=== PATIENT | female | born 1990 | race Caucasian/White ===

== ENCOUNTER 2016-10-20 09:07 | Day surgery (SDC) | payer OTHER ==
[2016-10-18 11:08] VITALS: BMI 30.9
[~2016-10-20 09:07] MED LIST: LACTATED RINGERS 1,000 ML IV SCH
[2016-10-20 09:19] VITALS: RESP 16; TEMP 98
--- NOTE | 2016-10-20 10:21 | P.PCN ---
Date of Procedure: 10/20/16 Procedure(s) Performed: PREOPERATIVE DIAGNOSIS: 1-lumbar radiculopathy 2-sacroiliitis. POSTOPERATIVE DIAGNOSIS: Same as preoperative diagnosis PROCEDURE 1. Lumbar epidural steroid injection under fluoroscopic guidance at the L5-S1 level. 2. Lumbar epidurogram. ANESTHESIA: Local with 1% lidocaine 3 ml only,no IV sedation given(Because the patient,s had difficult IV access ) EBL: Minimal PROCEDURE INDICATION: The patient with low back pain and radiculitis symptoms unresponsive to conservative treatment. Fluoroscopy was used to optimize visualization of the needle placement and to maximize safety. PROCEDURE DESCRIPTION / TECHNIQUE: The patient was seen and identified in the preoperative area. Risks, benefits , complications including but not limited to infections ,bleeding ,allergic reaction to the medications ,nerve damage and not complete pain releife , and alternatives were discussed with the patient. The patient agreed to proceed with the procedure and signed the consent, and vital signs were stable. Patient was taken to the OR and time out was completed. The patient was placed in the prone position on procedure table and a pillow was placed under the abdomen to reduce lumbar lordosis. The lumbosacral area was prepped and draped in the usual sterile fashion.ere closely monitored during the procedure. Vital signs was monitered during the entire procedure. Using anterior-posterior fluoroscopy, the L5-S1 interlaminar space was identified and the skin over this site was marked and then infiltrated with 1% lidocaine subcutaneously. Subsequently, a 20-gauge Tuohy epidural needle was inserted and advanced toward the epidural space using the ``Loss of resistance technique and guided by AP and lateral fluoroscopy. The correct needle position in the epidural space was verified with the injection of 2 mL of the water soluble contrast dye Omnipaque 180 contrast and observing an excellent epidurogram with the epidural spread of the dye, after negative aspiration for blood and CSF and in the absence of paresthesias. Again after negative aspiration, a 6 ml mixture containing 80 mg of Kenalog and 2 ml of preservative free Normal Saline, and 2 ml of preservative free lidocaine 1% solution was injected and a washout of epidurogram was seen. Needle was withdrawn intact, skin was cleansed, and bandages were applied. COMPLICATIONS: None DISPOSITION / PLANS: The patient was placed in a supine position and transferred to the recovery area in a stable condition for observation. There was no evidence of lower extremity motor or sensory deficit after the procedure. Patient was discharged from the recovery room after meeting discharge criteria. Home discharge instructions were given to the patient by the staff. The patient was reexamined prior to discharge. The patient will schedule a follow up in the clinic in 2-4 weeks.
--- NOTE | 2016-10-20 10:35 | FL ---
Fluoroscopy INDICATION: Pain FINDINGS: Fluoroscopy time: 4 seconds. Images obtained: 1. IMPRESSIONS: 1. Documentation of fluoroscopy.
[2016-10-20 10:39] VITALS: BP 107/69; PULSE 78
== END 2016-10-20 10:46 | disposition home or self-care (01) ==
LOC: ORPAIN 09:07
PROVIDERS: ATTEND Specialist
DX: M54.16 Radiculopathy, lumbar region (principal); M46.1 Sacroiliitis, not elsewhere classified
CPT/HCPCS: 62323; 81025

== ENCOUNTER 2016-10-29 02:50 | Observation (INO) | payer OTHER ==
[2016-10-29] MEDS ORDERED: HYDROmorphone 1 MG/ML 1 ML SYRINGE IVP STA (03:16)
[2016-10-29] MEDS ORDERED: ONDANSETRON 4 MG/2 ML VIAL IVP STA (03:16)
[2016-10-29] MEDS ORDERED: SODIUM CHLORIDE 0.9% 1,000 ML IV STA (03:16)
[2016-10-29 03:46] LABS: Basophils # (A) 0.1 k/uL (0-0.2); Basophils % (A) 0 %; CH 31.5; CHCM 33.6; Eosinophils # (A) 0.3 k/uL (0-0.7); Eosinophils % (A) 2 %; HCT 54.9 % (34.0-46.0); HDW 2.39; HGB 18.6 gm/dL (11.4-16.0); Luc # (Auto) 0.07; Luc % (Auto) 1; Lymphocytes # (A) 0.7 k/uL (1.0-4.8); Lymphocytes % (A) 5 %; MCH 31.8 pg (25.0-35.0); MCHC 33.9 g/dL (31.0-37.0); Mean Platelet Volume 7.2; Monocytes # (A) 0.4 k/uL (0-1.0); Monocytes % (A) 3 %; Neutrophils # (A) 12.9 k/uL (1.3-7.7); Neutrophils % (A) 90 %; RBC 5.84 m/uL (3.80-5.40); RDW 13.6 % (11.5-15.5); WBC 14.4 k/uL (3.8-10.6); WBC (Perox) 14.41
--- NOTE | 2016-10-29 03:50 | ED ---
Nausea/Vomiting/Diarrhea HPI - General Source: patient, RN notes reviewed Mode of arrival: ambulatory Limitations: no limitations <Kiki Carter - Last Filed: 10/29/16 04:19> <Real Becker - Last Filed: 10/29/16 05:09> - General Chief complaint: Nausea/Vomiting/Diarrhea Stated complaint: NVD, abd pain Time Seen by Provider: 10/29/16 03:09 - History of Present Illness Initial comments: Patient is a 25-year-old female with chief complaint of vomiting since 10:30 last night. She also reports she's had a few episodes of diarrhea. No specific fever or chills. She reports that she has not been able to hold down any food. She also reports that she has diffuse abdominal pain however it is worse and stabbing in the umbilical region. She has past medical history of heart surgery, lung biopsies and chronic back pain. Patient reports that she was recently diagnosed with pneumonia proximally 2 weeks ago and completed antibiotics. She denies any cough fever or chills since then. She states that she recently had a epidural and her lumbar spine a few days ago for chronic back pain. Patient reports that the procedure went well and had no complications after that. Patient states that she does have sick contacts with similar symptoms.Patient denies any recent fever, chills, shortness of breath, chest pain, back pain,numbness or tingling, dysuria or hematuria, headaches or visual changes, or any other current symptoms (Kiki Carter) - Related Data Home Medications Medication Instructions Recorded Confirmed Albuterol Inhaler [Ventolin Hfa 1 - 2 puff INHALATION Q6HR PRN 06/06/16 10/29/16 Inhaler] Baclofen [Lioresal] 10 mg PO DAILY 06/06/16 10/29/16 Gabapentin [Neurontin] 300 mg PO QID 06/06/16 10/29/16 Ipratropium-Albuterol Nebulize 3 ml INHALATION QID PRN 06/06/16 10/29/16 [Duoneb 0.5 mg-3 mg/3 ml Soln] Allergies Allergy/AdvReac Type Severity Reaction Status Date / Time No Known Allergies Allergy Verified 10/29/16 02:56 Review of Systems ROS Other: All systems not noted in ROS Statement are negative. <Kiki Carter - Last Filed: 10/29/16 04:19> ROS Other: All systems not noted in ROS Statement are negative. <BeckerReal - Last Filed: 10/29/16 05:09> ROS Statement: Those systems with pertinent positive or pertinent negative responses have been documented in the HPI. Past Medical History Past Medical History: Asthma, Musculoskeletal Disorder Additional Past Medical History / Comment(s): migraines. chronic back pain, heart murmur, coarctation of the aorta (surgery 1988), kidney stones, stillborn about 3 years ago, hx of being placed on life support 07/26 for 6 1/2 days pt states r/t asthma, pneumonia, current back pain with von leg pain History of Any Multi-Drug Resistant Organisms: None Reported Past Surgical History: Hernia Repair, Tubal Ligation Additional Past Surgical History / Comment(s): cardiac surgery Coarctation of aorta (1988), lung biopsy(1988), Umbilical hernia (12/31/14 ),hernia repair ,C-Sec WITH TWINS (10/23/14) Past Anesthesia/Blood Transfusion Reactions: No Reported Reaction Additional Past Anesthesia/Blood Transfusion Reaction / Comment(s): Never had blood transfusion Past Psychological History: Anxiety, Depression Additional Psychological History / Comment(s): currently not taking any medication, depression began when patient had a stillborn . Smoking Status: Current every day smoker Past Alcohol Use History: None Reported Additional Past Alcohol Use History / Comment(s): smoker since age 16 SMOKES 1PPD Past Drug Use History: None Reported - Past Family History Mother Family Medical History: Cancer, Diabetes Mellitus, Hyperlipidemia, Hypertension Additional Family Medical History / Comment(s): Thyroid CA Father Family Medical History: Asthma, Diabetes Mellitus <Kiki Carter - Last Filed: 10/29/16 04:19> General Exam Limitations: no limitations General appearance: alert, in no apparent distress Head exam: Present: atraumatic, normocephalic, normal inspection Eye exam: Present: normal appearance, PERRL, EOMI. Absent: scleral icterus, conjunctival injection, periorbital swelling ENT exam: Present: normal exam, mucous membranes moist Neck exam: Present: normal inspection. Absent: tenderness, meningismus, lymphadenopathy Respiratory exam: Present: normal lung sounds bilaterally. Absent: respiratory distress, wheezes, rales, rhonchi, stridor Cardiovascular Exam: Present: regular rate, normal rhythm, normal heart sounds. Absent: systolic murmur, diastolic murmur, rubs, gallop, clicks GI/Abdominal exam: Present: soft, tenderness (Patient has significant epigastric tenderness.), normal bowel sounds. Absent: distended, guarding, rebound, rigid Extremities exam: Present: normal inspection, full ROM, normal capillary refill. Absent: tenderness, pedal edema, joint swelling, calf tenderness Back exam: Present: normal inspection Neurological exam: Present: alert, oriented X3, CN II-XII intact Psychiatric exam: Present: normal affect, normal mood Skin exam: Present: warm, dry, intact, normal color. Absent: rash <Kiki Carter - Last Filed: 10/29/16 04:19> <Real Becker - Last Filed: 10/29/16 05:09> - General Exam Comments Initial Comments: is an ill-appearing 26-year-old female. No acute distress. (Kiki Carter) Course <Kiki Carter - Last Filed: 10/29/16 04:19> <Real Becker - Last Filed: 10/29/16 05:09> Vital Signs 10/29/16 02:55 Temperature 97.4 F L Pulse Rate 87 Respiratory 20 Rate Blood Pressure 134/71 O2 Sat by Pulse 98 Oximetry - Reevaluation(s) Reevaluation #1: 10/29/16 04:02 At this time patient was reevaluated. Patient reports that her abdominal pain is starting to subside however she is now complaining of the chest are chest pain. EKG was obtained and cardiac enzymes will also be obtained at this time. (Kiki Carter) Reevaluation #2: 10/29/16 04:19 Care was transferred over to Dr. Becker at 4:20 Am (Kiki Carter) Medical Decision Making - Lab Data Result diagrams: 10/29/16 03:30 10/29/16 03:30 - Radiology Data Radiology results: report reviewed <Kiki Carter - Last Filed: 10/29/16 04:19> - Lab Data Result diagrams: 10/29/16 03:30 10/29/16 03:30 <Real Becker - Last Filed: 10/29/16 05:09> - Medical Decision Making Patient is a 18-year-old female with chief complaint of vomiting since 10:30 yesterday evening and a few episodes of diarrhea. Patient reports that she has significant epigastric and umbilical abdominal pain. Patient denies any recent fever or chills. She was recently diagnosed and treated for pneumonia denies any cough or congestion since then. Labs were obtained and patient was given IV Zofran and 0.5 of Dilaudid for pain. Patient saline bolus. Chest x-ray and KUB x-ray were obtained. (Kiki Carter) Patient reevaluated by myself, Dr. Becker. Patient states chest discomfort is near resolved and now abdominal discomfort is starting to worsen. EKG reviewed and does appear somewhat different from previous. Troponin report returned negative. Patient and family updated on results and plan. Case discussed in detail with Dr. Rodriguez, who will admit for Dr. Russell. (Real Becker) - Lab Data Lab Results 10/29/16 10/29/16 10/29/16 Range/Units 03:30 03:30 03:30 WBC 14.4 H (3.8-10.6) k/uL RBC 5.84 H (3.80-5.40) m/uL Hgb 18.6 H (11.4-16.0) gm/dL Hct 54.9 H (34.0-46.0) % MCV 94.0 (80.0-100.0) fL MCH 31.8 (25.0-35.0) pg MCHC 33.9 (31.0-37.0) g/dL RDW 13.6 (11.5-15.5) % Plt Count 269 (150-450) k/uL Neutrophils % 90 % Lymphocytes % 5 % Monocytes % 3 % Eosinophils % 2 % Basophils % 0 % Neutrophils # 12.9 H (1.3-7.7) k/uL Lymphocytes # 0.7 L (1.0-4.8) k/uL Monocytes # 0.4 (0-1.0) k/uL Eosinophils # 0.3 (0-0.7) k/uL Basophils # 0.1 (0-0.2) k/uL Sodium 142 (137-145) mmol/L Potassium 4.1 (3.5-5.1) mmol/L Chloride 107 (98-107) mmol/L Carbon Dioxide 17 L (22-30) mmol/L Anion Gap 18 mmol/L BUN 23 H (7-17) mg/dL Creatinine 0.70 (0.52-1.04) mg/dL Est GFR (MDRD) Af Amer >60 (>60 ml/min/1.73 sqM) Est GFR (MDRD) Non-Af >60 (>60 ml/min/1.73 sqM) Glucose 176 H (74-99) mg/dL Calcium 9.7 (8.4-10.2) mg/dL Magnesium (1.6-2.3) mg/dL Total Bilirubin 0.8 (0.2-1.3) mg/dL AST 30 (14-36) U/L ALT 51 (9-52) U/L Alkaline Phosphatase 79 (38-126) U/L Total Creatine Kinase (30-135) U/L CK-MB (CK-2) (0.0-2.4) ng/mL CK-MB (CK-2) Rel Index Troponin I (0.000-0.034) ng/mL Total Protein 8.1 (6.3-8.2) g/dL Albumin 4.7 (3.5-5.0) g/dL Amylase 44 (30-110) U/L Lipase 90 (23-300) U/L Urine Color Yellow Urine Appearance Cloudy H (Clear) Urine pH 5.5 (5.0-8.0) Ur Specific [place] 1.022 (1.001-1.035) Urine Protein 1+ H (Negative) Urine Glucose (UA) Negative (Negative) Urine Ketones Negative (Negative) Urine Blood Trace H (Negative) Urine Nitrate Negative (Negative) Urine Bilirubin Negative (Negative) Urine Urobilinogen 2.0 (<2.0) mg/dL Ur Leukocyte Esterase Negative (Negative) Urine RBC 1 (0-5) /hpf Urine WBC 1 (0-5) /hpf Ur Squamous Epith Cells 9 H (0-4) /hpf Urine Mucus Rare H (None) /hpf 10/29/16 10/29/16 Range/Units 03:30 03:30 WBC (3.8-10.6) k/uL RBC (3.80-5.40) m/uL Hgb (11.4-16.0) gm/dL Hct (34.0-46.0) % MCV (80.0-100.0) fL MCH (25.0-35.0) pg MCHC (31.0-37.0) g/dL RDW (11.5-15.5) % Plt Count (150-450) k/uL Neutrophils % % Lymphocytes % % Monocytes % % Eosinophils % % Basophils % % Neutrophils # (1.3-7.7) k/uL Lymphocytes # (1.0-4.8) k/uL Monocytes # (0-1.0) k/uL Eosinophils # (0-0.7) k/uL Basophils # (0-0.2) k/uL Sodium (137-145) mmol/L Potassium (3.5-5.1) mmol/L Chloride (98-107) mmol/L Carbon Dioxide (22-30) mmol/L Anion Gap mmol/L BUN (7-17) mg/dL Creatinine (0.52-1.04) mg/dL Est GFR (MDRD) Af Amer (>60 ml/min/1.73 sqM) Est GFR (MDRD) Non-Af (>60 ml/min/1.73 sqM) Glucose (74-99) mg/dL Calcium (8.4-10.2) mg/dL Magnesium 1.7 (1.6-2.3) mg/dL Total Bilirubin (0.2-1.3) mg/dL AST (14-36) U/L ALT (9-52) U/L Alkaline Phosphatase (38-126) U/L Total Creatine Kinase 55 (30-135) U/L CK-MB (CK-2) 1.8 (0.0-2.4) ng/mL CK-MB (CK-2) Rel Index 3.3 Troponin I <0.012 (0.000-0.034) ng/mL Total Protein (6.3-8.2) g/dL Albumin (3.5-5.0) g/dL Amylase (30-110) U/L Lipase (23-300) U/L Urine Color Urine Appearance (Clear) Urine pH (5.0-8.0) Ur Specific [place] (1.001-1.035) Urine Protein (Negative) Urine Glucose (UA) (Negative) Urine Ketones (Negative) Urine Blood (Negative) Urine Nitrate (Negative) Urine Bilirubin (Negative) Urine Urobilinogen (<2.0) mg/dL Ur Leukocyte Esterase (Negative) Urine RBC (0-5) /hpf Urine WBC (0-5) /hpf Ur Squamous Epith Cells (0-4) /hpf Urine Mucus (None) /hpf 10/29/16 04:03 EKG shows normal sinus rhythm. There is possible left atrial enlargement. There is a rightward axis. His evidence of incomplete right bundle kike block. There is evidence of a T-wave abnormality to consider anterolateral ischemia. Ventricular rate 2 bpm. NJ interval 156 ms. QRS duration 86 ms. QT /QTc is 390/455 ms. (Kiki Carter) Disposition <Kiki Carter - Last Filed: 10/29/16 04:19> <Real Becker - Last Filed: 10/29/16 05:09> Clinical Impression: Abdominal pain, Chest pain, Vomiting Disposition: ADMITTED IP TO THIS HOSP
[2016-10-29 03:51] LABS: Appearance,Urine Cloudy (Clear); Bilirubin,Urine Negative (Negative); Glucose,Urine (UA) Negative (Negative); Ketones,Urine Negative (Negative); Leukocyte Esterase,Urine Negative (Negative); Mucus,Urine Rare /hpf; Nitrite,Urine Negative (Negative); PH, Urine 5.5 (5.0-8.0); Particle Count 5147; Protein,Urine 1+ (Negative); RBC,Urine 1 /hpf (0-5); Specific Gravity,Urine 1.022 (1.001-1.035); Squamous Epithelial Cell,Urine 9 /hpf (0-4); UA Billing (MACRO vs. MICRO) MICRO; WBC,Urine 1 /hpf (0-5)
[2016-10-29 04:07] LABS: ALT 51 U/L (9-52); AST 30 U/L (14-36); Alkaline Phosphatase 79 U/L (38-126); Amylase 44 U/L (30-110); Anion Gap 18 mmol/L; Blood Urea Nitrogen 23 mg/dL (7-17); Calcium 9.7 mg/dL (8.4-10.2); Carbon Dioxide 17 mmol/L (22-30); Chloride 107 mmol/L (98-107); Glucose 176 mg/dL (74-99); Non-African American GFR(MDRD) >60 (>60 ml/min/1.73 sqM); Potassium 4.1 mmol/L (3.5-5.1); Sodium 142 mmol/L (137-145); Total Bilirubin 0.8 mg/dL (0.2-1.3); Total Protein 8.1 g/dL (6.3-8.2)
[2016-10-29 04:20] LABS: Creatine Kinase 55 U/L (30-135)
[2016-10-29 04:33] LABS: Creatine Kinase MB 1.8 ng/mL (0.0-2.4); Troponin I <0.012 ng/mL (0.000-0.034)
--- NOTE | 2016-10-29 04:40 | XR ---
EXAMINATION TYPE: XR chest 2V DATE OF EXAM: 10/29/2016 4:16 AM COMPARISON: 07/21/2015 HISTORY: Umbilical pain chest pain. TECHNIQUE: Frontal and lateral views of the chest are obtained. FINDINGS: Mild atelectasis is suggested in the right lung base. No focal pneumonia pneumothorax or pleural effu lucy is noted. Right upper lobe azygous fissure is suggested. Surgical clips are noted in the left up per chest. Heart is not enlarged. The osseous structures are intact. IMPRESSION: 1. Mild atelectasis in the right lung base. 2. No definite focal pneumonia.
--- NOTE | 2016-10-29 04:43 | XR ---
EXAMINATION TYPE: XR KUB DATE OF EXAM: 10/29/2016 4:16 AM CLINICAL HISTORY: Umbilical pain chest pain TECHNIQUE: Single supine KUB image of the abdomen is obtained. COMPARISON: None. FINDINGS: Mild gaseous distention of bowel loops is noted in the abdomen and pelvis with multiple air-fluid lev els with suggestion of mild ileus or enteritis changes. No significant bowel obstruction is noted. There is no visceromegaly, pneumoperitoneum, or abnormal calcification appreciated. The lung bases are clear and the osseous structures are intact. IMPRESSION: Mild ileus or enteritis changes. No significant bowel obstruction is noted.
[2016-10-29] MEDS ORDERED: ASPIRIN 81 MG CHEW PO STA (05:09)
[2016-10-29] MEDS ORDERED: NITROGLYCERIN SL TABS 0.4 MG TAB SUBLINGUAL PRN (05:09)
[2016-10-29] MEDS ORDERED: DICYCLOMINE 10 MG/ML 2 ML AMP IM STA (05:11)
[2016-10-29] MEDS ORDERED: PANTOPRAZOLE 40 MG/10 ML VIAL IVP STA (05:11)
[2016-10-29] MEDS ORDERED: RX INFO: IV CONTRAST WAS GIVEN 1 EACH MISC MISCELLANE PRN (05:11)
[2016-10-29] MEDS ORDERED: ONDANSETRON 4 MG/2 ML VIAL IVP PRN (05:12)
[2016-10-29] MEDS ORDERED: NITROGLYCERIN OINT 1 INCH/GM PACKET TOPICAL SCH (06:00)
[2016-10-29 06:14] LABS: INR 1.1 (<1.1); Prothrombin Time 10.9 sec (9.0-12.0)
[2016-10-29 06:16] LABS: Partial Thromboplastin Time 21.5 sec (22.0-30.0)
[2016-10-29] MEDS: SODIUM CHLORIDE 0.9% 1,000 ML IV SCH ×2 (08:19→21:39)
--- NOTE | 2016-10-29 08:42 | CONS ---
DATE OF CONSULTATION: A 26-year-old lady with a history of some congenital heart surgery when she was 3 weeks old, probably was a coarctation, but there is no verification. She smokes about a pack a day and has had hernia surgery performed for her umbilical hernia surgery sometime in 2014, in June. Prior to that, she had an umbilical hernia in December repaired as well. She comes in this time because she has been having nausea, unable to keep anything down, and emesis from about 10:30 p.m. last night. This morning, she feels better. Her sickness to the stomach seems to have improved. She also had some sharp pains in the chest when she was doing some retching. She is pain-free, comfortable at the time of my evaluation. She smokes 1 pack a day. At the time of my evaluation, she is asymptomatic. EKG revealed a sinus mechanism with an incomplete right bundle nonspecific ST-T changes. Her initial troponin is unremarkable. PAST MEDICAL HISTORY: 1. Question of previous coarctation and surgery when she was a few weeks old, details are unavailable. 2. Bronchial asthma. 3. Recurrent pneumonias in the past. 4. Status post abdominal hernia repair. Medications include albuterol inhaler, Neurontin. She also takes DuoNeb nebulizer. ALLERGIES: None. REVIEW OF SYSTEMS: Remarkable for shortness of breath and recurrent pneumonias. No hematemesis or melena, genitourinary symptoms, fevers with chills, or cough with expectoration. On examination, blood pressure is 118/70, pulse rate is 80 per minute, regular. HEENT: Unremarkable. Fundus was not examined by me. Neck is supple. There is JVD of 1 cm. No carotid bruit. Heart exam reveals S1, S2 with a systolic murmur at the base and left sternal border. Second heart sound is preserved. Left lower sternal border has a systolic murmur. Lungs are clear. Abdomen is distended, nontender. Lower extremities reveal diminished pulses. No edema. Central nervous system is normal. EKG revealed sinus mechanism, incomplete right bundle branch block pattern with nonspecific ST-T changes. IMPRESSION: 1. Atypical chest pain. 2. History of abdominal hernia repair. 3. Probable gastritis with abdominal pain, nausea and vomiting, which she seems to have improved. 4. Bronchial asthma. 5. History of tobacco abuse. RECOMMENDATIONS: I have reviewed that she had a CT angiography performed in July 2015. There is no significant abnormality other than pneumonia. I am suggesting that we decrease the aspirin to 81 mg daily, discontinue the nitro paste, give her Protonix 40 mg daily, increase activity, and then get another troponin and if this is normal, no further investigation from a cardiac standpoint is necessary. I am also recommending subcu heparin 5000 q.12 hours. No other investigation is necessary from a cardiac standpoint at this time. Thank you very much for the consult.
[2016-10-29] MEDS ORDERED: HEPARIN SODIUM,PORCINE 5,000 UNIT/ML 1 ML VIAL SQ SCH (09:00)
[2016-10-29 09:22] VITALS: BMI 33.5
[2016-10-29 09:45] LABS: Creatine Kinase 34 U/L (30-135)
[2016-10-29 09:59] LABS: Creatine Kinase MB 1.6 ng/mL (0.0-2.4); Troponin I <0.012 ng/mL (0.000-0.034)
[2016-10-29] MEDS ORDERED: ALBUTEROL NEBULIZED 2.5 MG/3 ML INHALATION PRN (11:01)
[2016-10-29] MEDS: ASPIRIN 81 MG CHEW PO SCH (11:14)
[2016-10-29] MEDS: HEPARIN SODIUM,PORCINE 5,000 UNIT/ML 1 ML VIAL SQ SCH ×2 (11:14→21:36)
[2016-10-29] MEDS: PANTOPRAZOLE 40 MG/10 ML VIAL IVP SCH (11:14)
[2016-10-29] MEDS: GABAPENTIN 300 MG CAP PO SCH ×3 (14:04→21:38)
[2016-10-29] MEDS: IPRATROPIUM-ALBUTEROL 3 ML NEB INHALATION PRN (15:35)
[2016-10-29 16:00] LABS: Creatine Kinase 38 U/L (30-135)
[2016-10-29 16:14] LABS: Creatine Kinase MB 1.6 ng/mL (0.0-2.4); Troponin I <0.012 ng/mL (0.000-0.034)
--- NOTE | 2016-10-29 18:44 | HP ---
CHIEF COMPLAINT: Intractable nausea, vomiting, abdominal pain. HISTORY OF PRESENT ILLNESS: Ms. Rubio is a 26-year-old female with known history of abdominal hernia repair in December 2014 and history of heart surgery for coarctation of aorta when she was 3 weeks old and neuropathy. She came to the hospital with complaints of nausea, vomiting and abdominal pain since last night. Patient also complained of sharp pains in the chest, but serial EKGs and troponins are negative. Currently being treated with the Zofran and Protonix. Nausea, vomiting seems to be improved; otherwise, is still having abdominal pain, mainly in the upper abdomen and epigastric region. Patient also had a bowel movement. No gross blood noted. FOBT was positive otherwise. Patient does smoke 1/2 pack to 1 pack per day. Denied any unusual food intake. Patient was recently treated with antibiotics for pneumonia and she completed antibiotic course about 2 weeks ago. No complaints of cough or sputum production at this time. No sick contacts at home. REVIEW OF SYSTEMS: CONSTITUTIONAL: No fever. No chills. No weakness, malaise. RESPIRATORY: No cough or sputum production. CARDIOVASCULAR: Patient does have chest pressure and no short of breath. No leg swelling. ABDOMEN: Patient does have nausea. No vomiting now. Patient does have abdominal pain and diarrhea. GENITOURINARY: Negative. ENDOCRINE: Negative. PSYCHIATRIC: Negative. SKIN: Negative. All other 14-point review of systems negative except as above. Past medical history includes: 1. Bronchial asthma. 2. Recent pneumonia. 3. Abdominal hernia repair in 2014. 4. History of coarctation of aorta when she was 3 weeks old, status post repair. 5. Migraine headaches. 6. Chronic back pain. 7. Renal stones. 8. Heart murmur. 9. History of intubation. PAST SURGICAL HISTORY: Cardiac surgery for coarctation of aorta when she was 3 weeks old, hernia repair, tubal ligation, lung biopsy. PSYCHOSOCIAL HISTORY: Anxiety and depression, not on any medication at this time. SOCIAL HISTORY: Current every day smoker, smoker since age 16, 1/2 pack to 1 pack per day. No alcohol use. Denied any drugs or IVDU. FAMILY HISTORY: Mother has cancer, diabetes mellitus, hyperlipidemia, hypertension and thyroid cancer. Father had asthma and diabetes mellitus. ALLERGIES: No known drug allergies. Home medications include: 1. Albuterol inhaler. 2. Baclofen. 3. Gabapentin. 4. DuoNeb. PHYSICAL EXAMINATION: A 26-year-old male lying in bed comfortably; awake, alert, oriented x3, appears to be in no apparent distress. VITALS: Blood pressure is 101/57, pulse is 66, respirations 16, temperature afebrile, pulse ox 97% on room air. HEENT: Atraumatic, normocephalic. Neck is supple. No JVD. CVS: S1, S2 heard. Patient does have systolic murmur. No gallop. LUNGS: Bilateral air entry is present. No wheezing. No crackles. ABDOMEN: Soft. Upper abdominal tenderness in the epigastric region above the umbilicus. No guarding. No rigidity. Bowel sounds are present. No palpable organomegaly. MATERIALS TECH: Awake, alert, oriented x3. No focal deficit. EXTREMITIES: No edema. Pulses palpable bilaterally. No clubbing or cyanosis. PSYCHIATRIC: Cooperative. LABORATORY DATA: WBC 14.4, hemoglobin 18.6, platelets are 269, INR 1.1. Sodium 142, potassium 4.1, chloride 107, bicarb is 17, BUN 23, creatinine 0.7. Blood sugar is 176. Serial troponins x3 negative. UA showed cloudy urine with negative leukocyte esterase and nitrate negative. ( ) possible contaminant sample. FOBT positive. C. diff. negative. IMPRESSION: 1. Intractable nausea, vomiting, abdominal pain. 2. Atypical chest pain, ruled out acute coronary syndrome. 3. Acute gastroenteritis. 4. History of abdominal hernia repair in 2014. 5. Bronchial asthma, stable. 6. Nicotine addiction. 7. Recent pneumonia, status post antibiotic course completed 2 weeks ago. 8. Deep venous thrombosis prophylaxis. 9. History of migraine headaches. 10. Chronic back pain. 11. Neuropathy, nondiabetic. 12. Patient's KUB x-ray showed mild ileus or ( ) ileus. No significant bowel obstruction is noted. DISCUSSION AND PLAN: Patient will be continued on IV Protonix and Zofran p.r.n. and continue the IV fluids, continue with IV management. Once the nausea and vomiting improves, then ready to be started on clear liquids and advance as tolerated. Will continue the home medications and continue the IV fluids. Cardiology has seen the patient and recommended no further workup at this time, ruled out acute coronary syndrome. Further recommendations based on the clinical course.
[2016-10-29] MEDS ORDERED: LOPERAMIDE 2 MG CAP PO PRN (21:13)
[2016-10-29] MEDS: BACLOFEN 10 MG TAB PO SCH (21:38)
[2016-10-29] MEDS: HYDROmorphone 1 MG/ML 1 ML SYRINGE IVP PRN (21:42)
[2016-10-30] MEDS: SODIUM CHLORIDE 0.9% 1,000 ML IV SCH ×3 (04:00→21:34)
[2016-10-30] MEDS: HYDROmorphone 1 MG/ML 1 ML SYRINGE IVP PRN ×3 (06:43→21:27)
[2016-10-30] MEDS: HEPARIN SODIUM,PORCINE 5,000 UNIT/ML 1 ML VIAL SQ SCH ×2 (07:34→21:27)
[2016-10-30] MEDS: ASPIRIN 81 MG CHEW PO SCH (07:34)
[2016-10-30] MEDS: GABAPENTIN 300 MG CAP PO SCH ×3 (07:34→21:27)
[2016-10-30] MEDS: PANTOPRAZOLE 40 MG/10 ML VIAL IVP SCH (07:34)
[2016-10-30 07:40] LABS: Basophils % (A) 1 %; CH 31.3; CHCM 33.2; Eosinophils # (A) 0.1 k/uL (0-0.7); Eosinophils % (A) 3 %; HCT 42.2 % (34.0-46.0); HDW 2.35; Luc # (Auto) 0.12; Luc % (Auto) 2; Lymphocytes # (A) 1.2 k/uL (1.0-4.8); Lymphocytes % (A) 22 %; MCH 31.2 pg (25.0-35.0); MCHC 32.9 g/dL (31.0-37.0); MCV 94.8 fL (80.0-100.0); Mean Platelet Volume 8.1; Monocytes # (A) 0.4 k/uL (0-1.0); Monocytes % (A) 7 %; Neutrophils # (A) 3.5 k/uL (1.3-7.7); Neutrophils % (A) 66 %; RBC 4.45 m/uL (3.80-5.40); RDW 13.8 % (11.5-15.5); WBC 5.3 k/uL (3.8-10.6); WBC (Perox) 5.36
[2016-10-30 07:45] LABS: HGB 13.9 gm/dL (11.4-16.0)
[2016-10-30 07:50] LABS: Anion Gap 9 mmol/L; Blood Urea Nitrogen 14 mg/dL (7-17); Calcium 8.2 mg/dL (8.4-10.2); Carbon Dioxide 21 mmol/L (22-30); Chloride 110 mmol/L (98-107); Cholesterol 134 mg/dL (<200); Glucose 80 mg/dL (74-99); HDL Cholesterol 39 mg/dL (40-60); Non-African American GFR(MDRD) >60 (>60 ml/min/1.73 sqM); Potassium 4.4 mmol/L (3.5-5.1); Sodium 140 mmol/L (137-145); Triglycerides 131 mg/dL (<150)
[2016-10-30] MEDS ORDERED: ACETAMINOPHEN TAB 325 MG TAB PO PRN (08:35)
[2016-10-30] MEDS ORDERED: PANTOPRAZOLE 40 MG/10 ML VIAL IVP SCH (09:00)
[2016-10-30] MEDS ORDERED: ASPIRIN 325 MG TAB PO SCH (09:00)
[2016-10-30] MEDS ORDERED: ASPIRIN 81 MG CHEW PO SCH (09:00)
[2016-10-30 14:15] LABS: Amylase <30 U/L (30-110)
[2016-10-30] MEDS ORDERED: RX INFO: IV CONTRAST WAS GIVEN 1 EACH MISC MISCELLANE PRN (15:27)
[2016-10-30] MEDS: IOHEXOL 350 MG/ML 25 ML BOTTLE (ORAL USE) PO PRN ×2 (15:51→16:46)
--- NOTE | 2016-10-30 18:15 | CT ---
EXAMINATION TYPE: CT abdomen pelvis w con DATE OF EXAM: 10/30/2016 5:47 PM HISTORY: Umbilical pain with nausea, vomiting and diarrhea. CT DLP: 1018.90mGycm Automated Exposure Control for Dose Reduction was Utilized. CONTRAST: CT scan of the abdomen and pelvis is performed with IV Contrast, patient injected with 100 mL of Omni paque 300. COMPARISON: None. FINDINGS: LUNG BASES: No significant abnormality is appreciated. LIVER/GB: No significant abnormality is appreciated. PANCREAS: No significant abnormality is seen. SPLEEN: No significant abnormality is seen. ADRENALS: No significant abnormality is seen. KIDNEYS: No significant abnormality is seen. BOWEL: The oral contrast does not reach level of terminal ileum making evaluation slightly suboptimal . No suspicious small or large bowel dilatation is seen. Appendix likely within normal limits from po sterior inferior margin of cecum. UTERUS/ADNEXA: Uterus is retroverted in shape, heterogeneous appearance, and within normal limits in size. Right ovary is not well seen. Left ovary is more prominent with oval low dense 4.2 x 3.2 cm str ucture on coronal image 37 could reflect simple small ovarian cyst. This could be better characterize d with pelvic ultrasound if desired. Few scattered pelvic phleboliths are seen. Cannot exclude trace free fluid along right posterior aspect of uterus. LYMPH NODES: No greater than 1cm abdominal or pelvic lymph nodes are appreciated. OSSEOUS STRUCTURES: No significant abnormality is seen. OTHER: Small fat-containing umbilical hernia is present. Some areas of ill-defined fat stranding in the anterior abdominal wall are identified, for reference right side just below umbilicus on axial image 52 and left abdomen axial image 57, this could reflect product of subcutaneous medicine injection, scarring from prior surgery, or soft tissue infection/ce llulitis, clinical correlation advised. IMPRESSION: 1. No bowel obstruction is seen. No significant finding is identified to account for patient's sympto ms. 2. A 4.2 x 3.2 cm low dense oval shaped left ovarian/adnexal mass, probable simple ovarian cyst, cons ider pelvic ultrasound confirmation. 3. Attention to anterior abdominal wall as detailed above.
[2016-10-30 20:48] VITALS: RESP 16
[2016-10-30] MEDS: BACLOFEN 10 MG TAB PO SCH (21:27)
[2016-10-31] MEDS: ASPIRIN 81 MG CHEW PO SCH (08:12)
[2016-10-31] MEDS: PANTOPRAZOLE 40 MG/10 ML VIAL IVP SCH (08:13)
[2016-10-31] MEDS: HYDROmorphone 1 MG/ML 1 ML SYRINGE IVP PRN (08:13)
[2016-10-31] MEDS: HEPARIN SODIUM,PORCINE 5,000 UNIT/ML 1 ML VIAL SQ SCH (08:13)
[2016-10-31] MEDS: GABAPENTIN 300 MG CAP PO SCH (08:13)
[2016-10-31] MEDS: SODIUM CHLORIDE 0.9% 1,000 ML IV SCH (08:29)
[2016-10-31] MEDS: IPRATROPIUM-ALBUTEROL 3 ML NEB INHALATION PRN (09:49)
--- NOTE | 2016-10-31 11:42 | PN ---
DATE OF SERVICE: 10/30/2016 INTERVAL HISTORY: Ms. Rubio is a 26 -year-old female with a known history of abdominal hernia repair and history of heart surgery for coaptation of aorta when she was [age] weeks old and neuropathy nondiabetic, came to the hospital with complaints of nausea, vomiting, abdominal pain which have been improved at this time, diarrhea has improved as well. The patient is being managed symptomatically. Otherwise, the patient is still complaining of abdominal pain, mainly in the epigastric abdomen and also upper abdominal area. There is tenderness to palpation. No guarding or rigidity. Patient will be getting CT of the abdomen and pelvis for further evaluation. Otherwise, patient did tolerate her lunch today. Denied any diarrhea. No fever. No chills. Patient is very anxious and requesting IV pain medications. Otherwise, no cough or sputum production. No dysuria, hematuria. All other fourteen-point review of systems negative except as above. CURRENT MEDICATIONS: Reviewed and include: 1. Tylenol. 2. DuoNeb. 3. Aspirin. 4. Baclofen. 5. Neurontin. 6. Heparin subcu. 7. Dilaudid. 8. Omnipaque for oral contrast. 9. Imodium. 10. Nitrostat. 11. Zofran. 12. Protonix. 13. normal saline at 100 mL per hour. PHYSICAL EXAMINATION: A 26-year-old male lying in bed comfortably, awake, alert, oriented, x3. Appears to be in no apparent distress. VITALS: Blood pressure is 111/68, pulse is 63, respirations 18, temperature afebrile, pulse ox 99% on room air. HEENT: Atraumatic, normocephalic. Neck is supple. No JVD. CVS: S1, S2 heard. No murmurs, no gallop, no rub. LUNGS: Bilateral air entry is present. ABDOMEN: Soft. Epigastric tenderness moderate. No guarding or rigidity. Bowel sounds are present. 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 No focal deficits. PSYCHIATRIC: Cooperative but anxious. EXTREMITIES: No edema. Pulses palpable bilaterally. No clubbing or cyanosis. PSYCHIATRIC: Cooperative. LABORATORY DATA: WBC 5.3, hemoglobin 13.9, platelets 191, INR 1.1. Sodium 140, potassium 4.4, chloride 110, bicarbonate 21, BUN 14, creatinine 0.66. Calcium 8.2, LDL is 69, amylase less than 30 and lipase is 80. IMPRESSION: 1. Intractable nausea, vomiting, abdominal pain with possible acute gastroenteritis. 2. Ileus, possible bowel obstruction, we will get CT of the abdomen and pelvis. 3. Acute atypical chest pain on admission and ruled out acute coronary syndrome. 4. History of abdominal hernia repair in December 2014. 5. Bronchial asthma, stable. 6. Nicotine addiction. 7. Recent pneumonia, status post antibiotic course completed two weeks ago. 8. Deep venous thrombosis prophylaxis. 9. History of migraine headaches. 10. Chronic back pain. 11. Neuropathy nondiabetic. DISCUSSION AND PLAN: The patient will be continued on IV fluids and IV Protonix and Zofran p.r.n. for nausea and vomiting. Patient tolerated the p.o. diet today. We will get lipase and amylase was within normal limits. We will get CT of the abdomen and pelvis to rule out obstruction or any other issues. Will continue the current management and continue the pain management. Further recommendations based on clinical course. Anticipate discharge in the next 24 hours if more clinical improvement.
[2016-10-31 12:23] VITALS: BP 100/63; PULSE 55; TEMP 98.7
--- NOTE | 2016-12-26 06:39 | DS ---
DATE OF ADMISSION: 10/29/2016 DATE OF DISCHARGE: 10/31/2016 DISCHARGE DIAGNOSES: 1. Intractable nausea, vomiting, abdominal pain, possible acute gastroenteritis. 2. Ileus, improved now. No evidence of bowel obstruction in the CT of the abdomen and pelvis. 3. Left adnexal mass, possible simple ovarian cyst as per CT abdomen. 4. Atypical chest pain on admission, ruled out acute coronary syndrome. 5. History of abdominal hernia repair in December 2014. 6. Bronchial asthma, stable. 7. Nicotine addiction. 8. Recent pneumonia, status post antibiotic course completed 2 weeks ago. 9. Deep venous thrombosis prophylaxis. 10. History of migraine headaches. 11. Chronic back pain. 12. Neuropathy nondiabetic. HOSPITAL COURSE: Ms. Rubio is a 26-year-old female with known history of abdominal hernia repair in 2014 and heart surgery for coarctation of aorta when she was 3 weeks old and neuropathy and multiple other medical problems admitted to the hospital with nausea, vomiting, abdominal pain and diarrhea. Patient was receiving antibiotics for pneumonia. Her C. difficile toxin is negative. Otherwise patient was treated symptomatically for nausea and vomiting. Patient did improve symptomatically. Patient had a CT of abdomen and pelvis showed no obstruction. Patient was found to have a left adnexal mass/simple ovarian cyst for which patient was recommended to follow up as an outpatient with [facility]. Otherwise patient's abdominal pain and nausea and vomiting, improved now, tolerating p.o. diet. Patient will be discharged home and followed with the primary care physician and as well as [facility] in the clinic for further management. Currently, patient is symptom free. DISCHARGE PHYSICAL EXAMINATION: A 26-year-old female, lying in bed comfortably, awake, alert, oriented x3. He appears to be in no apparent distress. VITALS: Blood pressure is 100/63, pulse is 55, respiratory rate 16, temperature afebrile, pulse ox is saturating at 100% on room air. LABORATORY DATA: Reviewed. Bicarb is 21, BUN 14, creatinine 0.66. Lipase and amylase not elevated. C. difficile toxin is negative. Discharge physical examination done. Discharge medications include: 1. Albuterol inhaler 2 puffs q.i.d. p.r.n. for short of breath. 2. Baclofen 10 mg p.o. at bedtime. 3. DuoNeb 3 mL inhalation RT q.i.d. p.r.n. for short of breath. 4. Gabapentin 300 mg p.o. t.i.d. Patient will be discharged home in stable condition. Activity as tolerated. Heart healthy diet. Follow with Dr. Modi in the clinic. Home with self care.
== END 2016-10-31 13:30 | disposition home or self-care (01) ==
LOC: EC 02:50 → 3OBS 05:09
PROVIDERS: ADMIT Internal Medicine; ATTEND Internal Medicine
DX: R19.7 Diarrhea, unspecified (principal); R07.89 Other chest pain; J45.909 Unspecified asthma, uncomplicated; F17.200 Nicotine dependence, unspecified, uncomplicated; G62.9 Polyneuropathy, unspecified; G89.29 Other chronic pain; M54.9 Dorsalgia, unspecified; K56.7 Ileus, unspecified; Z82.49 Family history of ischemic heart disease and other diseases of the circulatory system; Z87.01 Personal history of pneumonia (recurrent); Z87.442 Personal history of urinary calculi; Z79.899 Other long term (current) drug therapy
CPT/HCPCS: 96375 ×3; 96361 ×2; 96372 ×2; 96374 ×2; 99285 ×2; 36415; 94640 ×2; 93005; 80061; 80053; 80048; 82150 ×2; 82550; 82553; 83690 ×2; 83735; 84484; 85025 ×2; 85610; 85730; 82272; 81001; 80299; 71020; 74000; 74177; G0378 ×3; J0500; J1644 ×3; J2405; J1170 ×3; Q9967; C9113 ×3; 87324; 96376

== ENCOUNTER 2016-11-30 09:57 | Day surgery (SDC) | payer OTHER ==
[2016-11-29 09:04] VITALS: BMI 33.5
[2016-11-30 10:21] VITALS: RESP 16; TEMP 98
[2016-11-30] MEDS ORDERED: TRIAMCINOLONE ACETONIDE 40 MG/ML 1 ML VIAL ONE (11:03)
[2016-11-30] MEDS ORDERED: BUPIVACAINE (PF) 0.5% 30 ML VIAL ONE (11:03)
--- NOTE | 2016-11-30 11:23 | P.PCN ---
Date of Procedure: 11/30/16 Procedure(s) Performed: PREOPERATIVE DIAGNOSIS: 1- Lumbar radiculopathy 2-sacroiliitis POSTOPERATIVE DIAGNOSIS: Same as preoperative diagnoses PROCEDURE 1. Lumbar epidural steroid injection under fluoroscopic guidance at the L4-5 level. 2. Lumbar epidurogram. ANESTHESIA: Local with 1% lidocaine 3 ml only ( no IV sedation given, as per patient's request) EBL: Minimal PROCEDURE INDICATION: The patient with low back pain and radiculitis symptoms unresponsive to conservative treatment. Fluoroscopy was used to optimize visualization of the needle placement and to maximize safety. PROCEDURE DESCRIPTION / TECHNIQUE: The patient was seen and identified in the preoperative area. Risks, benefits , complications including but not limited to infections ,bleeding ,allergic reaction to the medications ,nerve damage and not complete pain releife , and alternatives were discussed with the patient. The patient agreed to proceed with the procedure and signed the consent and vital signs were stable. Patient was taken to the OR and time out was completed. The patient was placed in the prone position on procedure table and a pillow was placed under the abdomen to reduce lumbar lordosis. The lumbosacral area was prepped and draped in the usual sterile fashion.ere closely monitored during the procedure. Vital signs was monitered during the entire procedure. Using anterior-posterior fluoroscopy, the L4-5 interlaminar space was identified and the skin over this site was marked and then infiltrated with 1% lidocaine subcutaneously. Subsequently, a 20-gauge Tuohy epidural needle was inserted and advanced toward the epidural space using the ``Loss of resistance technique and guided by AP and lateral fluoroscopy. The correct needle position in the epidural space was verified with the injection of 2 mL of the water soluble contrast dye Omnipaque 180 contrast and observing an excellent epidurogram with the epidural spread of the dye, after negative aspiration for blood and CSF and in the absence of paresthesias. Again after negative aspiration, a 6 ml mixture containing 80 mg of Kenalog and 2 ml of preservative free Normal Saline, and 2 ml of preservative free lidocaine 1% solution was injected and a washout of epidurogram was seen. Needle was withdrawn intact, skin was cleansed, and bandages were applied. COMPLICATIONS: None DISPOSITION / PLANS: The patient was placed in a supine position and transferred to the recovery area in a stable condition for observation. There was no evidence of lower extremity motor or sensory deficit after the procedure. Patient was discharged from the recovery room after meeting discharge criteria. Home discharge instructions were given to the patient by the staff. The patient was reexamined prior to discharge. The patient will schedule a follow up in the clinic in 2-4 weeks.
[2016-11-30 11:30] VITALS: BP 98/63; PULSE 88
--- NOTE | 2016-11-30 11:32 | FL ---
EXAMINATION TYPE: FL guided pain mgmt statistic DATE OF EXAM: 11/30/2016 11:24 AM CLINICAL HISTORY: Low back pain. TECHNIQUE: Fluoroscopy. COMPARISON: None. FINDINGS: Fluoroscopic guidance was provided during pain relief procedure performed by Dr. Turner . A total of 3 seconds of fluoroscopic time was utilized during the procedure and 1 spot image is ac quired. Single image acquired shows needle localization at level of L5 vertebra. IMPRESSION: As Above.
== END 2016-11-30 11:46 | disposition home or self-care (01) ==
LOC: ORPAIN 09:57
PROVIDERS: ATTEND Specialist
DX: M51.16 Intervertebral disc disorders with radiculopathy, lumbar region (principal); M46.1 Sacroiliitis, not elsewhere classified
CPT/HCPCS: 81025; 62323; J3301

== ENCOUNTER → 2016-12-12 | Outpatient (CLI) | payer OTHER ==
--- NOTE | 2016-12-12 14:58 | US ---
EXAMINATION TYPE: US pelvis complete transvag DATE OF EXAM: 12/12/2016 1:57 PM COMPARISON: NONE CLINICAL HISTORY: L Ovarian Cyst N83.20. follow up from CT in October 2016; patient states has irreg ular menses since September/vaginal bleeding now per patient; (twins)A1; C section delivery x 1 TECHNIQUE: Transvaginal (TV) and Transabdominal (TA) Date of LMP: last normal one in September 2016 EXAM MEASUREMENTS: Uterus: 9.3 x 6.2 x 4.0cm Endometrial Stripe: 1.2 cm by transvaginal Right Ovary: 2.5 x 2.1 x 1.5cm Left Ovary: 2.7 x 1.8 x 1.8 cm 1. Uterus: Anteverted Multiple Nabothian cysts with largest = 0.6 x 0.5 x 0.4cm 2. Endometrium: unable to correlate thickness with irregular menses 3. Right Ovary: multifollicular with largest = 1.2 x 1.3 x 1.6cm 4. Left Ovary: multiple small follicles 5. Bilateral Adnexa: wnl 6. Posterior cul-de-sac: wnl The uterus is anteverted. There are multiple nabothian cysts within the cervix. Endometrial stripe is normal in thickness. There are follicular changes in both ovaries. No free fluid is seen. IMPRESSION: NABOTHIAN CYSTS.
== END ==
LOC: RADUSWWP 13:04
PROVIDERS: ATTEND Obstetrics & Gynecology
DX: N88.8 Other specified noninflammatory disorders of cervix uteri (principal)
CPT/HCPCS: 76830; 76856

== ENCOUNTER → 2017-01-02 | Outpatient (CLI) | payer OTHER ==
[2017-01-02 12:46] VITALS: BP 155/82; PULSE 76; RESP 18; TEMP 98.5
--- NOTE | 2017-01-02 13:26 | P.PN ---
Progress Note - Text This is a 26-year-old female with lower back pain with radiation to the lower extremities bilaterally occasionally to the toes. Her lower back pain is more intense than her legs pain as she states. She failed to respond to 3 lumbar epidural steroid injections. She does have tenderness in the lumbar paravertebral area bilaterally. She has a history of aortic coarctation with surgery on the aorta when she was 3 weeks old and she was told that it is better to avoid having IVs in her left arm. Since the patient's pain is more intense in her lower back and we'll schedule her to have lumbar bilateral medial branch block as diagnostic procedure and if she gets significant relief of her pain then we can plan on doing the radio frequency ablation in the future. I will restart the patient on Neurontin and baclofen. She used to get them from Dr. Snowden who stopped prescribing for her. The above-mentioned procedure was explained to the patient and her questions were answered. [place] he had the lumbar epidural under local anesthesia but for this procedure she would like to try IV sedation with an IV to be started on the right arm as possible.
== END ==
LOC: PNWHC3 12:04
PROVIDERS: ATTEND Anesthesiology
DX: M54.5 Low back pain (principal)
CPT/HCPCS: 99211

== ENCOUNTER 2017-04-11 23:11 | Emergency (ER) | payer OTHER ==
[2017-04-11 23:21] VITALS: RESP 18
[2017-04-12] MEDS ORDERED: RX INFO: IV CONTRAST WAS GIVEN 1 EACH MISC MISCELLANE PRN (01:09)
--- NOTE | 2017-04-12 02:36 | CT ---
INDICATION: Pain, evaluate for mastoiditis TECHNIQUE: CT acquisition is performed through the facial bones following the administration of 100 mL Omnipaque 300 IV contrast. Sagittal and coronal reformatted images provided. DOSE INFORMATION: CTDIvol 30.60 mGy; DLP 361.20 mGy-cm. One or more of the following dose reduction techniques were used: automated exposure control, adjustment of the mA and/or kV according to patient size, use of iterative reconstruction technique. COMPARISON: None. FINDINGS: There is no evidence of acute fracture of the facial bones. The nasal bones, orbits, zygomatic arches, pterygoid plates, and mandible are intact. Temporomandibular joints are congruent bilaterally. The visualized paranasal sinuses and mastoid air cells and middle ear cavities are clear. IMPRESSION: 1. No evidence of mastoiditis.
[2017-04-12] MEDS ORDERED: HYDROcodone/APAP 5-325MG 1 EACH TAB PO STA (02:42)
[2017-04-12] MEDS ORDERED: IBUPROFEN 600 MG TAB PO STA (02:42)
--- NOTE | 2017-04-12 02:44 | ED ---
ENT HPI - General Chief complaint: ENT Stated complaint: ear pain Time Seen by Provider: 04/11/17 23:25 Source: patient Mode of arrival: ambulatory Limitations: no limitations - Related Data Home Medications Medication Instructions Recorded Confirmed Albuterol Inhaler [Ventolin Hfa 2 puff INHALATION RT-QID PRN 06/06/16 04/11/17 Inhaler] Amoxicillin 500 mg PO Q12HR 04/11/17 04/11/17 Previous Rx's Medication Instructions Recorded Ciprofloxacin HCl [Cipro] 500 mg PO Q12HR #14 tablet 04/12/17 Ciprofloxacin-Dexameth [Ciprodex 4 drops LEFT EAR BID #15 ml 04/12/17 Otic Susp] Ibuprofen [Motrin] 600 mg PO Q8HR PRN #20 tab 04/12/17 traMADol HCl [Ultram] 50 mg PO Q6H PRN #15 tab 04/12/17 Allergies Allergy/AdvReac Type Severity Reaction Status Date / Time No Known Allergies Allergy Verified 04/11/17 23:27 Review of Systems ROS Statement: Those systems with pertinent positive or pertinent negative responses have been documented in the HPI. ROS Other: All systems not noted in ROS Statement are negative. Past Medical History Past Medical History: Asthma, Musculoskeletal Disorder Additional Past Medical History / Comment(s): migraines,hx. heart murmur, coarctation of the aorta (surgery 1988), kidney stones, hx of being placed on life support 07/26 for 6 1/2 days pt states r/t asthma, pneumonia, current back pain with von leg pain, recent admission for abd pain-ovarian cysts History of Any Multi-Drug Resistant Organisms: None Reported Past Surgical History: Section, Hernia Repair, Tubal Ligation Additional Past Surgical History / Comment(s): cardiac surgery Coarctation of aorta (1988), lung biopsy(1988), Umbilical hernia (12/31/14 ),hernia repair ,C-Sec WITH TWINS (10/23/14) Past Anesthesia/Blood Transfusion Reactions: No Reported Reaction Additional Past Anesthesia/Blood Transfusion Reaction / Comment(s): Never had blood transfusion Past Psychological History: Anxiety, Depression Smoking Status: Current every day smoker Past Alcohol Use History: None Reported Past Drug Use History: None Reported - Past Family History Mother Family Medical History: Cancer, Diabetes Mellitus, Hyperlipidemia, Hypertension Additional Family Medical History / Comment(s): Thyroid CA Father Family Medical History: Asthma General Exam Limitations: no limitations Course Vital Signs 04/11/17 23:19 Temperature 97.0 F L Pulse Rate 82 Respiratory 18 Rate Blood Pressure 145/86 O2 Sat by Pulse 100 Oximetry Disposition Clinical Impression: Otitis externa Disposition: HOME SELF-CARE Condition: Good Instructions: Earache (ED) Prescriptions: Ciprofloxacin HCl [Cipro] 500 mg PO Q12HR #14 tablet Ciprofloxacin-Dexameth [Ciprodex Otic Susp] 4 drops LEFT EAR BID #15 ml Ibuprofen [Motrin] 600 mg PO Q8HR PRN #20 tab PRN Reason: Pain traMADol HCl [Ultram] 50 mg PO Q6H PRN #15 tab PRN Reason: Pain Referrals: Cornelia Modi MD [Primary Care Provider] - 1-2 days Kirk Vines MD [STAFF PHYSICIAN] - 1-2 days
[2017-04-12] MEDS ORDERED: CIPROFLOXACIN-DEXAMETH 0.3-0.1% DROPS 7.5 ML BTL LEFT EAR STA (03:15)
[2017-04-12 03:26] VITALS: BP 131/77; PULSE 66; TEMP 98.7
== END 2017-04-12 03:26 | disposition home or self-care (01) ==
LOC: EC 23:11
DX: H60.90 Unspecified otitis externa, unspecified ear (principal); F17.200 Nicotine dependence, unspecified, uncomplicated
CPT/HCPCS: 99283; 70487; Q9967

== ENCOUNTER 2017-08-02 10:18 | Emergency (ER) | payer OTHER ==
[2017-08-02] MEDS ORDERED: RX INFO: IV CONTRAST WAS GIVEN 1 EACH MISC MISCELLANE PRN (10:39)
[2017-08-02] MEDS ORDERED: HYDROmorphone 0.5 MG/0.5 ML SYRINGE IVP STA (10:39)
[2017-08-02] MEDS ORDERED: ONDANSETRON 4 MG/2 ML VIAL IVP STA (10:39)
[2017-08-02] MEDS ORDERED: SODIUM CHLORIDE 0.9% 1,000 ML IV STA (10:39)
[2017-08-02] MEDS ORDERED: PANTOPRAZOLE 40 MG/10 ML VIAL IVP STA (10:40)
--- NOTE | 2017-08-02 10:56 | ED ---
Abdominal Pain HPI - General Chief Complaint: Abdominal Pain Stated Complaint: Abd Pain Time Seen by Provider: 08/02/17 10:26 Source: patient, RN notes reviewed Mode of arrival: ambulatory Limitations: no limitations - History of Present Illness Initial Comments: 26-year-old female presents emergency Department chief complaint of epigastric abdominal pain. Patient states that the pain is in her epigastric minimal radiation to her back. Patient does admit to some nausea denies vomiting diarrhea constipation. Patient denies fever, chills, chest pain or shortness breath. Patient states she has had prior umbilical hernia surgery with Dr. Green. Patient's has had prior tubal ligation. Patient denies any dysuria hematuria. Patient states nothing seems to make the symptoms feel better or worse. Patient has taken Zantac as directed. - Related Data Home Medications Medication Instructions Recorded Confirmed Gabapentin [Neurontin] 300 mg PO TID 08/02/17 08/02/17 Previous Rx's Medication Instructions Recorded Hydrocodone/Acetaminophen [[place] 1 tab PO Q6HR PRN #15 tab 08/02/17 5-325] Omeprazole 40 mg PO DAILY #14 capsule. 08/02/17 Ondansetron Odt [Zofran Odt] 4 mg PO Q8HR PRN #10 tab 08/02/17 Allergies Allergy/AdvReac Type Severity Reaction Status Date / Time No Known Allergies Allergy Verified 08/02/17 10:33 Review of Systems ROS Statement: Those systems with pertinent positive or pertinent negative responses have been documented in the HPI. ROS Other: All systems not noted in ROS Statement are negative. Past Medical History Past Medical History: Asthma, Musculoskeletal Disorder Additional Past Medical History / Comment(s): migraines,hx. heart murmur, coarctation of the aorta (surgery 1988), kidney stones, hx of being placed on life support 07/26 for 6 1/2 days pt states r/t asthma, pneumonia, current back pain with von leg pain, recent admission for abd pain-ovarian cysts History of Any Multi-Drug Resistant Organisms: None Reported Past Surgical History: Section, Hernia Repair, Tubal Ligation Additional Past Surgical History / Comment(s): cardiac surgery Coarctation of aorta (1988), lung biopsy(1988), Umbilical hernia (12/31/14 ),hernia repair ,C-Sec WITH TWINS (10/23/14) Past Anesthesia/Blood Transfusion Reactions: No Reported Reaction Additional Past Anesthesia/Blood Transfusion Reaction / Comment(s): Never had blood transfusion Past Psychological History: Anxiety, Depression Smoking Status: Current every day smoker Past Alcohol Use History: None Reported Past Drug Use History: None Reported - Past Family History Mother Family Medical History: Cancer, Diabetes Mellitus, Hyperlipidemia, Hypertension Additional Family Medical History / Comment(s): Thyroid CA Father Family Medical History: Asthma General Exam Limitations: no limitations General appearance: alert, in no apparent distress Head exam: Present: atraumatic, normocephalic, normal inspection Eye exam: Present: normal appearance, PERRL, EOMI. Absent: scleral icterus, conjunctival injection, periorbital swelling ENT exam: Present: normal exam, normal oropharynx, mucous membranes moist, TM's normal bilaterally, normal external ear exam Neck exam: Present: normal inspection, full ROM. Absent: tenderness, meningismus, lymphadenopathy Respiratory exam: Present: normal lung sounds bilaterally. Absent: respiratory distress, wheezes, rales, rhonchi, stridor Cardiovascular Exam: Present: regular rate, normal rhythm, normal heart sounds. Absent: systolic murmur, diastolic murmur, rubs, gallop, clicks GI/Abdominal exam: Present: soft, tenderness (Moderate epigastric tenderness), normal bowel sounds. Absent: distended, guarding, rebound, rigid Back exam: Absent: CVA tenderness (R), CVA tenderness (L) Skin exam: Present: warm, dry, intact, normal color. Absent: rash Course Vital Signs 08/02/17 10:20 Temperature 98.2 F Pulse Rate 96 Respiratory 18 Rate Blood Pressure 171/108 O2 Sat by Pulse 100 Oximetry Medical Decision Making - Medical Decision Making This a 26-year-old female presents emergency Department chief complaint epigastric pain. Patient's CT does show evidence of anterior abdominal wall hernia though on the more periumbilical region. Patient's laboratory unremarkable. Patient has some underlying peptic ulcer disease. Patient will be switched to omeprazole 40 mg, given pain medication at this time advised for close follow-up. - Lab Data Result diagrams: 08/02/17 10:55 08/02/17 10:55 Lab Results 08/02/17 08/02/17 08/02/17 Range/Units 10:55 10:55 10:55 WBC 6.8 (3.8-10.6) k/uL RBC 4.55 (3.80-5.40) m/uL Hgb 14.1 (11.4-16.0) gm/dL Hct 41.8 (34.0-46.0) % MCV 91.7 (80.0-100.0) fL MCH 31.0 (25.0-35.0) pg MCHC 33.8 (31.0-37.0) g/dL RDW 12.7 (11.5-15.5) % Plt Count 207 (150-450) k/uL Neutrophils % 69 % Lymphocytes % 22 % Monocytes % 4 % Eosinophils % 2 % Basophils % 1 % Neutrophils # 4.7 (1.3-7.7) k/uL Lymphocytes # 1.5 (1.0-4.8) k/uL Monocytes # 0.2 (0-1.0) k/uL Eosinophils # 0.2 (0-0.7) k/uL Basophils # 0.0 (0-0.2) k/uL Sodium 138 (137-145) mmol/L Potassium 4.6 (3.5-5.1) mmol/L Chloride 108 H (98-107) mmol/L Carbon Dioxide 21 L (22-30) mmol/L Anion Gap 9 mmol/L BUN 15 (7-17) mg/dL Creatinine 0.70 (0.52-1.04) mg/dL Est GFR (MDRD) Af Amer >60 (>60 ml/min/1.73 sqM) Est GFR (MDRD) Non-Af >60 (>60 ml/min/1.73 sqM) Glucose 94 (74-99) mg/dL Plasma Lactic Acid [place] (0.7-2.0) mmol/L Calcium 9.5 (8.4-10.2) mg/dL Total Bilirubin 0.5 (0.2-1.3) mg/dL AST 21 (14-36) U/L ALT 31 (9-52) U/L Alkaline Phosphatase 55 (38-126) U/L Troponin I <0.012 (0.000-0.034) ng/mL Total Protein 7.1 (6.3-8.2) g/dL Albumin 4.2 (3.5-5.0) g/dL Amylase 45 (30-110) U/L Lipase 83 (23-300) U/L Urine Color Urine Appearance (Clear) Urine pH (5.0-8.0) Ur Specific [place] (1.001-1.035) Urine Protein (Negative) Urine Glucose (UA) (Negative) Urine Ketones (Negative) Urine Blood (Negative) Urine Nitrite (Negative) Urine Bilirubin (Negative) Urine Urobilinogen (<2.0) mg/dL Ur Leukocyte Esterase (Negative) 08/02/17 08/02/17 Range/Units 10:55 10:55 WBC (3.8-10.6) k/uL RBC (3.80-5.40) m/uL Hgb (11.4-16.0) gm/dL Hct (34.0-46.0) % MCV (80.0-100.0) fL MCH (25.0-35.0) pg MCHC (31.0-37.0) g/dL RDW (11.5-15.5) % Plt Count (150-450) k/uL Neutrophils % % Lymphocytes % % Monocytes % % Eosinophils % % Basophils % % Neutrophils # (1.3-7.7) k/uL Lymphocytes # (1.0-4.8) k/uL Monocytes # (0-1.0) k/uL Eosinophils # (0-0.7) k/uL Basophils # (0-0.2) k/uL Sodium (137-145) mmol/L Potassium (3.5-5.1) mmol/L Chloride (98-107) mmol/L Carbon Dioxide (22-30) mmol/L Anion Gap mmol/L BUN (7-17) mg/dL Creatinine (0.52-1.04) mg/dL Est GFR (MDRD) Af Amer (>60 ml/min/1.73 sqM) Est GFR (MDRD) Non-Af (>60 ml/min/1.73 sqM) Glucose (74-99) mg/dL Plasma Lactic Acid [place] 1.0 (0.7-2.0) mmol/L Calcium (8.4-10.2) mg/dL Total Bilirubin (0.2-1.3) mg/dL AST (14-36) U/L ALT (9-52) U/L Alkaline Phosphatase (38-126) U/L Troponin I (0.000-0.034) ng/mL Total Protein (6.3-8.2) g/dL Albumin (3.5-5.0) g/dL Amylase (30-110) U/L Lipase (23-300) U/L Urine Color Light Yellow Urine Appearance Clear (Clear) Urine pH 6.5 (5.0-8.0) Ur Specific [place] 1.009 (1.001-1.035) Urine Protein Negative (Negative) Urine Glucose (UA) Negative (Negative) Urine Ketones Negative (Negative) Urine Blood Negative (Negative) Urine Nitrite Negative (Negative) Urine Bilirubin Negative (Negative) Urine Urobilinogen <2.0 (<2.0) mg/dL Ur Leukocyte Esterase Negative (Negative) Disposition Clinical Impression: Epigastric abdominal pain, Gastritis Disposition: HOME SELF-CARE Condition: Stable Instructions: Abdominal Pain (ED), Gastritis (ED) Additional Instructions: Please return to the Emergency Department if symptoms worsen or any other concerns. Prescriptions: Hydrocodone/Acetaminophen [[place] 5-325] 1 tab PO Q6HR PRN #15 tab PRN Reason: Pain Omeprazole 40 mg PO DAILY #14 capsule. Ondansetron Odt [Zofran Odt] 4 mg PO Q8HR PRN #10 tab PRN Reason: Nausea Referrals: Cornelia Modi MD [Primary Care Provider] - 1-2 days Swapna Pierce MD [STAFF PHYSICIAN] - 1-2 days
[2017-08-02 11:12] LABS: Basophils % (A) 1 %; CH 30.8; CHCM 33.7; Eosinophils # (A) 0.2 k/uL (0-0.7); Eosinophils % (A) 2 %; HCT 41.8 % (34.0-46.0); HDW 2.35; HGB 14.1 gm/dL (11.4-16.0); Luc # (Auto) 0.17; Luc % (Auto) 3; Lymphocytes # (A) 1.5 k/uL (1.0-4.8); Lymphocytes % (A) 22 %; MCHC 33.8 g/dL (31.0-37.0); MCV 91.7 fL (80.0-100.0); Mean Platelet Volume 7.2; Monocytes # (A) 0.2 k/uL (0-1.0); Monocytes % (A) 4 %; Neutrophils # (A) 4.7 k/uL (1.3-7.7); Neutrophils % (A) 69 %; RBC 4.55 m/uL (3.80-5.40); RDW 12.7 % (11.5-15.5); WBC 6.8 k/uL (3.8-10.6); WBC (Perox) 6.65
[2017-08-02 11:14] LABS: Appearance,Urine Clear (Clear); Bilirubin,Urine Negative (Negative); Glucose,Urine (UA) Negative (Negative); Ketones,Urine Negative (Negative); Leukocyte Esterase,Urine Negative (Negative); Nitrite,Urine Negative (Negative); PH, Urine 6.5 (5.0-8.0); Protein,Urine Negative (Negative); Specific Gravity,Urine 1.009 (1.001-1.035); UA Billing (MACRO vs. MICRO) CHEM; Urobilinogen,Urine <2.0 mg/dL (<2.0)
[2017-08-02 11:25] LABS: ALT 31 U/L (9-52); AST 21 U/L (14-36); Alkaline Phosphatase 55 U/L (38-126); Amylase 45 U/L (30-110); Anion Gap 9 mmol/L; Blood Urea Nitrogen 15 mg/dL (7-17); Calcium 9.5 mg/dL (8.4-10.2); Carbon Dioxide 21 mmol/L (22-30); Chloride 108 mmol/L (98-107); Glucose 94 mg/dL (74-99); Non-African American GFR(MDRD) >60 (>60 ml/min/1.73 sqM); Potassium 4.6 mmol/L (3.5-5.1); Sodium 138 mmol/L (137-145); Total Bilirubin 0.5 mg/dL (0.2-1.3); Total Protein 7.1 g/dL (6.3-8.2)
--- NOTE | 2017-08-02 12:06 | CT ---
EXAMINATION TYPE: CT abdomen pelvis w con DATE OF EXAM: 08/02/2017 COMPARISON: 10/30/2016 INDICATION: Epigastric Pain DLP: 627.5 mGycm, Automated exposure control for dose reduction was used. CONTRAST: 100 mL of Omnipaque 300. Study performed without Oral Contrast TECHNIQUE: Axial images were obtained from above the diaphragm to the pubic rami in the axial plane a t 5 mm thick sections. Reconstructed images are reviewed on the computer in the coronal plane. FINDINGS: Limited CT sections are obtained the lung bases. Minimal subsegmental compressive atelectasis in the dependent portions of the lung bases, left greater than right, may be present.. CT ABDOMEN: Liver: Normal Spleen: Normal Pancreas: Normal Adrenal glands: The adrenal glands are normal. Gallbladder: Normal Kidneys: No masses are evident. No hydronephrosis is present. No cysts are present. Delayed images were obtained through the kidneys, which remain unremarkable. Aorta: Normal Inferior vena cava: Normal. CT PELVIS: Loops of bowel within the abdomen and pelvis are normal. Study is without oral contrast limiting the evaluation. Fecal debris is noted within the colon. There is a broad anterior abdominal wall leopoldo ia in the periumbilical region containing loop of colon. No entrapment is evident. Appendix: Normal as visualized. Urinary bladder: Normal. Genitourinary structures: Uterus is unremarkable. Adnexal regions are clear. Osseous structures: No suspicious lytic or sclerotic lesions. IMPRESSIONS: 1. No suspicious acute changes. 2. Broad-based mild anterior abdominal wall hernia without evidence of obstruction.
[2017-08-02] MEDS ORDERED: MAG HYDROX/AL HYDROX/SIMETH 30 ML, HYOSCYAMINE ELIXIR 10 ML, CIMETIDINE HCL 300 MG PO STA ×3 (12:46)
[2017-08-02 13:36] VITALS: BP 132/80; PULSE 72; RESP 17; TEMP 97.9
== END 2017-08-02 13:34 | disposition home or self-care (01) ==
LOC: EC 10:18
DX: K29.70 Gastritis, unspecified, without bleeding (principal); K43.9 Ventral hernia without obstruction or gangrene; K42.9 Umbilical hernia without obstruction or gangrene; K27.9 Peptic ulcer, site unspecified, unspecified as acute or chronic, without hemorrhage or perforation; M54.9 Dorsalgia, unspecified; F41.9 Anxiety disorder, unspecified; F17.200 Nicotine dependence, unspecified, uncomplicated; Z79.899 Other long term (current) drug therapy
CPT/HCPCS: 36415; 93005; 80053; 82150; 83605; 83690; 84484; 85025; 81003; 74177; 99284; 96374; 96375 ×2; 96361 ×2; J2405; Q9967; C9113; J1170

== ENCOUNTER 2020-10-22 09:36 | Emergency (ER) | payer OTHER ==
[2020-10-22 09:41] VITALS: TEMP 97.8
[2020-10-22] MEDS ORDERED: KETOROLAC 15 MG/ML 1 ML VIAL IVP STA (09:58)
[2020-10-22] MEDS ORDERED: SODIUM CHLORIDE 0.9% 500 ML 500 ML IV STA (09:58)
[2020-10-22] MEDS ORDERED: HYDROmorphone 0.5 MG/0.5 ML SYRINGE IVP STA ×2 (09:58→10:51)
[2020-10-22] MEDS ORDERED: ONDANSETRON 4 MG/2 ML VIAL IVP STA (09:58)
[2020-10-22] MEDS ORDERED: SODIUM CHLORIDE 0.9% 1,000 ML IV STA (09:58)
[2020-10-22 10:18] LABS: Basophils # (A) 0.1 k/uL (0-0.2); Basophils % (A) 1 %; Eosinophils # (A) 0.3 k/uL (0-0.7); Eosinophils % (A) 3 %; HCT 40.8 % (34.0-46.0); HGB 13.9 gm/dL (11.4-16.0); Lymphocytes # (A) 2.2 k/uL (1.0-4.8); Lymphocytes % (A) 24 %; MCH 31.7 pg (25.0-35.0); MCV 93.2 fL (80.0-100.0); Mean Platelet Volume 7.1; Monocytes # (A) 0.4 k/uL (0-1.0); Monocytes % (A) 4 %; Neutrophils % (A) 67 %; Platelet Count 248 k/uL (150-450); RBC 4.38 m/uL (3.80-5.40)
[2020-10-22 10:21] LABS: Appearance,Urine Cloudy (Clear); Bacteria,Urine Rare /hpf; Bilirubin,Urine Negative (Negative); Blood,Urine Large (Negative); Color,Urine Yellow; Glucose,Urine (UA) Negative (Negative); Ketones,Urine Negative (Negative); Leukocyte Esterase,Urine Small (Negative); Mucus,Urine Rare /hpf; Nitrite,Urine Negative (Negative); PH, Urine 5.5 (5.0-8.0); Protein,Urine 1+ (Negative); RBC,Urine >182 /hpf (0-5); Specific Gravity,Urine 1.021 (1.001-1.035); Squamous Epithelial Cell,Urine 4 /hpf (0-4); Urobilinogen,Urine <2.0 mg/dL (<2.0); WBC,Urine 8 /hpf (0-5)
[2020-10-22 10:36] LABS: African American GFR (CKD) >90 (>60 ml/min/1.73 sqM); Albumin 4.3 g/dL (3.5-5.0); Amylase 54 U/L (30-110); Blood Urea Nitrogen 16 mg/dL (7-17); Calcium 9.3 mg/dL (8.4-10.2); Carbon Dioxide 21 mmol/L (22-30); Glucose 100 mg/dL (74-99); Non-African American GFR(CKD) >90 (>60 ml/min/1.73 sqM); Total Bilirubin 0.5 mg/dL (0.2-1.3); Total Protein 7.4 g/dL (6.3-8.2)
[2020-10-22 10:37] LABS: ALT 20 U/L (4-34); Anion Gap 10 mmol/L; Chloride 106 mmol/L (98-107); Lipase 155 U/L (23-300); Sodium 137 mmol/L (137-145)
--- NOTE | 2020-10-22 10:37 | ED ---
General Adult HPI - General Chief complaint: Back Pain/Injury Stated complaint: Back/abd pain poss kidney stone Time Seen by Provider: 10/22/20 09:43 Source: patient, RN notes reviewed Mode of arrival: ambulatory Limitations: no limitations - History of Present Illness Initial comments: This a 29-year-old female presents emergency Department chief complaint of severe right flank pain. Patient states this started suddenly onset of pain. Nothing makes it feel better or worse at this time. Patient does have a history kidney stones but states it's been several years and just passes stone. She has not noticed any hematuria no dysuria no fevers or chills patient admits nausea, near vomiting. Patient denies any chest pain. Patient took some medications earlier but states that did not help. Patient offers no complaints. - Related Data Home Medications Medication Instructions Recorded Confirmed Albuterol Sulfate [Proair Hfa] 2 puff INHALATION RT-Q6H PRN 10/22/20 10/22/20 Previous Rx's Medication Instructions Recorded Ketorolac [Toradol] 10 mg PO Q8HR #15 tab 10/22/20 Ondansetron Odt [Zofran Odt] 4 mg PO Q8HR PRN #10 tab 10/22/20 Tamsulosin [Flomax] 0.4 mg PO DAILY #7 cap 10/22/20 Allergies Allergy/AdvReac Type Severity Reaction Status Date / Time No Known Allergies Allergy Verified 10/22/20 11:09 Review of Systems ROS Statement: Those systems with pertinent positive or pertinent negative responses have been documented in the HPI. ROS Other: All systems not noted in ROS Statement are negative. Past Medical History Past Medical History: Asthma, Musculoskeletal Disorder Additional Past Medical History / Comment(s): migraines,hx. heart murmur, coarctation of the aorta (surgery 1988), kidney stones, hx of being placed on life support 07/26 for 6 1/2 days pt states r/t asthma, pneumonia, current back pain with von leg pain, recent admission for abd pain-ovarian cysts History of Any Multi-Drug Resistant Organisms: None Reported Past Surgical History: Section, Hernia Repair, Tubal Ligation Additional Past Surgical History / Comment(s): cardiac surgery Coarctation of aorta (1988), lung biopsy(1988), Umbilical hernia (12/31/14 ),hernia repair 06/25,C-Sec WITH TWINS (10/23/14) Past Anesthesia/Blood Transfusion Reactions: No Reported Reaction Additional Past Anesthesia/Blood Transfusion Reaction / Comment(s): Never had blood transfusion Past Psychological History: Anxiety, Depression Smoking Status: Current every day smoker Past Alcohol Use History: None Reported Past Drug Use History: None Reported - Past Family History Mother Family Medical History: Cancer, Diabetes Mellitus, Hyperlipidemia, Hypertension Additional Family Medical History / Comment(s): Thyroid CA Father Family Medical History: Asthma General Exam Limitations: no limitations General appearance: alert, in no apparent distress Head exam: Present: atraumatic, normocephalic, normal inspection Eye exam: Present: normal appearance, PERRL, EOMI. Absent: scleral icterus, conjunctival injection, periorbital swelling ENT exam: Present: normal exam, normal oropharynx, mucous membranes moist Neck exam: Present: normal inspection, full ROM. Absent: tenderness, meningismus, lymphadenopathy Respiratory exam: Present: normal lung sounds bilaterally. Absent: respiratory distress, wheezes, rales, rhonchi, stridor Cardiovascular Exam: Present: regular rate, normal rhythm, normal heart sounds. Absent: systolic murmur, diastolic murmur, rubs, gallop, clicks GI/Abdominal exam: Present: soft, normal bowel sounds. Absent: distended, tenderness, guarding, rebound, rigid Back exam: Present: CVA tenderness (R). Absent: CVA tenderness (L) Neurological exam: Present: alert, oriented X3 Skin exam: Present: warm, dry, intact, normal color. Absent: rash Course Vital Signs 10/22/20 09:37 Temperature 97.8 F Pulse Rate 101 H Respiratory 20 Rate Blood Pressure 156/80 O2 Sat by Pulse 99 Oximetry Medical Decision Making - Medical Decision Making 29-year-old presented for flank pain. Patient has hematuria noticed and urinalysis. Patient is improved after pain meds and fluids. Patient does have history kidney stone symptoms are consistent with kidney stone. Patient discharged in stable condition return parameters were discussed. - Lab Data Result diagrams: 10/22/20 10:08 10/22/20 10:08 Lab Results 10/22/20 10/22/20 10/22/20 Range/Units 10:06 10:06 10:08 WBC 9.0 (3.8-10.6) k/uL RBC 4.38 (3.80-5.40) m/uL Hgb 13.9 (11.4-16.0) gm/dL Hct 40.8 (34.0-46.0) % MCV 93.2 (80.0-100.0) fL MCH 31.7 (25.0-35.0) pg MCHC 34.0 (31.0-37.0) g/dL RDW 12.0 (11.5-15.5) % Plt Count 248 (150-450) k/uL MPV 7.1 Neutrophils % 67 % Lymphocytes % 24 % Monocytes % 4 % Eosinophils % 3 % Basophils % 1 % Neutrophils # 6.0 (1.3-7.7) k/uL Lymphocytes # 2.2 (1.0-4.8) k/uL Monocytes # 0.4 (0-1.0) k/uL Eosinophils # 0.3 (0-0.7) k/uL Basophils # 0.1 (0-0.2) k/uL Sodium (137-145) mmol/L Potassium (3.5-5.1) mmol/L Chloride (98-107) mmol/L Carbon Dioxide (22-30) mmol/L Anion Gap mmol/L BUN (7-17) mg/dL Creatinine (0.52-1.04) mg/dL Est GFR (CKD-EPI)AfAm (>60 ml/min/1.73 sqM) Est GFR (CKD-EPI)NonAf (>60 ml/min/1.73 sqM) Glucose (74-99) mg/dL Calcium (8.4-10.2) mg/dL Total Bilirubin (0.2-1.3) mg/dL AST (14-36) U/L ALT (4-34) U/L Alkaline Phosphatase (38-126) U/L Total Protein (6.3-8.2) g/dL Albumin (3.5-5.0) g/dL Amylase (30-110) U/L Lipase (23-300) U/L Urine Color Yellow Urine Appearance Cloudy H (Clear) Urine pH 5.5 (5.0-8.0) Ur Specific [place] 1.021 (1.001-1.035) Urine Protein 1+ H (Negative) Urine Glucose (UA) Negative (Negative) Urine Ketones Negative (Negative) Urine Blood Large H (Negative) Urine Nitrite Negative (Negative) Urine Bilirubin Negative (Negative) Urine Urobilinogen <2.0 (<2.0) mg/dL Ur Leukocyte Esterase Small H (Negative) Urine RBC >182 H (0-5) /hpf Urine WBC 8 H (0-5) /hpf Ur Squamous Epith Cells 4 (0-4) /hpf Urine Bacteria Rare H (None) /hpf Urine Mucus Rare H (None) /hpf Urine HCG, Qual Not Detected (Not Detectd) 10/22/20 Range/Units 10:08 WBC (3.8-10.6) k/uL RBC (3.80-5.40) m/uL Hgb (11.4-16.0) gm/dL Hct (34.0-46.0) % MCV (80.0-100.0) fL MCH (25.0-35.0) pg MCHC (31.0-37.0) g/dL RDW (11.5-15.5) % Plt Count (150-450) k/uL MPV Neutrophils % % Lymphocytes % % Monocytes % % Eosinophils % % Basophils % % Neutrophils # (1.3-7.7) k/uL Lymphocytes # (1.0-4.8) k/uL Monocytes # (0-1.0) k/uL Eosinophils # (0-0.7) k/uL Basophils # (0-0.2) k/uL Sodium 137 (137-145) mmol/L Potassium 4.8 (3.5-5.1) mmol/L Chloride 106 (98-107) mmol/L Carbon Dioxide 21 L (22-30) mmol/L Anion Gap 10 mmol/L BUN 16 (7-17) mg/dL Creatinine 0.82 (0.52-1.04) mg/dL Est GFR (CKD-EPI)AfAm >90 (>60 ml/min/1.73 sqM) Est GFR (CKD-EPI)NonAf >90 (>60 ml/min/1.73 sqM) Glucose 100 H (74-99) mg/dL Calcium 9.3 (8.4-10.2) mg/dL Total Bilirubin 0.5 (0.2-1.3) mg/dL AST 28 (14-36) U/L ALT 20 (4-34) U/L Alkaline Phosphatase 61 (38-126) U/L Total Protein 7.4 (6.3-8.2) g/dL Albumin 4.3 (3.5-5.0) g/dL Amylase 54 (30-110) U/L Lipase 155 (23-300) U/L Urine Color Urine Appearance (Clear) Urine pH (5.0-8.0) Ur Specific [place] (1.001-1.035) Urine Protein (Negative) Urine Glucose (UA) (Negative) Urine Ketones (Negative) Urine Blood (Negative) Urine Nitrite (Negative) Urine Bilirubin (Negative) Urine Urobilinogen (<2.0) mg/dL Ur Leukocyte Esterase (Negative) Urine RBC (0-5) /hpf Urine WBC (0-5) /hpf Ur Squamous Epith Cells (0-4) /hpf Urine Bacteria (None) /hpf Urine Mucus (None) /hpf Urine HCG, Qual (Not Detectd) Disposition Clinical Impression: Right flank pain, Kidney stone Disposition: HOME SELF-CARE Condition: Stable Instructions (If sedation given, give patient instructions): Kidney Stones (ED) Additional Instructions: Please return to the Emergency Department if symptoms worsen or any other concerns. Prescriptions: Tamsulosin [Flomax] 0.4 mg PO DAILY #7 cap Ketorolac [Toradol] 10 mg PO Q8HR #15 tab Ondansetron Odt [Zofran Odt] 4 mg PO Q8HR PRN #10 tab PRN Reason: Nausea Is patient prescribed a controlled substance at d/c from ED?: No Referrals: Cornelia Modi MD [Primary Care Provider] - 1-2 days Woo Carreon MD [STAFF PHYSICIAN] - 1-2 days Time of Disposition: 11:46
[2020-10-22 10:41] LABS: AST 28 U/L (14-36); Alkaline Phosphatase 61 U/L (38-126); Potassium 4.8 mmol/L (3.5-5.1)
--- NOTE | 2020-10-22 11:00 | XR ---
EXAMINATION TYPE: XR KUB DATE OF EXAM: 10/22/2020 COMPARISON: NONE HISTORY: Pain TECHNIQUE: Single supine KUB image of the abdomen is obtained FINDINGS: Small bowel demonstrates no evidence for dilatation or air fluid levels. Gas and fecal material is seen in non-distended colon. No convincing evidence for pneumoperitoneum. No unusual calcifications. The lung bases are clear. The osseous structures are intact. IMPRESSION: 1. Overall nonobstructive bowel gas pattern.
[2020-10-22] MEDS ORDERED: ACET/COD 300 MG/30 MG STARTER PACK 6 TAB BTL PO STA (11:47)
[2020-10-22 11:59] VITALS: BP 133/95; PULSE 79; RESP 18
== END 2020-10-22 11:59 | disposition home or self-care (01) ==
LOC: EC 09:36
DX: N20.0 Calculus of kidney (principal); R10.9 Unspecified abdominal pain; J45.909 Unspecified asthma, uncomplicated; F17.200 Nicotine dependence, unspecified, uncomplicated; Z98.51 Tubal ligation status; Z87.442 Personal history of urinary calculi
CPT/HCPCS: 36415; 80053; 82150; 83690; 85025; 81001; 81025; 74018; 99284; 96374; 96375 ×2; 96376; 96361 ×2; J2405; J1885; J1170

== ENCOUNTER 2021-01-27 09:23 | Emergency (ER) | payer OTHER ==
[2021-01-27 09:36] VITALS: BP 117/73; PULSE 79; RESP 18; TEMP 97.5
--- NOTE | 2021-01-27 10:17 | XR ---
EXAMINATION TYPE: XR foot complete LT DATE OF EXAM: 01/27/2021 CLINICAL HISTORY: Rolled ankle with foot and ankle pain TECHNIQUE: Frontal, lateral, and oblique images of the left foot are obtained. COMPARISON: None FINDINGS: There is no acute fracture/dislocation evident in the left foot. The joint spaces in the left foot appear within normal limits. The overlying soft tissue appears unremarkable. IMPRESSION: There is no acute fracture or dislocation in the left foot.
--- NOTE | 2021-01-27 10:40 | XR ---
Left ankle HISTORY: Trauma and pain 2 days prior 3 views of the left ankle Correlation to left foot same date Some spurring present at the tibiotalar joint. Bone mineralization, joint spaces and alignment are ma intained. There is soft tissue swelling. IMPRESSION: No fracture or dislocation is evident.
--- NOTE | 2021-01-27 10:52 | ED ---
General Adult HPI - General Chief complaint: Extremity Injury, Lower Stated complaint: lt foot injury Time Seen by Provider: 01/27/21 09:42 Source: patient Mode of arrival: ambulatory Limitations: no limitations - History of Present Illness Initial comments: 30-year-old female presents to the emergency for chief complaint of left foot pain. Patient was walking around the stairs when she inverted her left foot and ankle and fell. States this occurred yesterday. States that she has tenderness along the side of the left foot. It is painful to walk on. Patient did not hit her head.Patient has no other complaints at this time including shortness of breath, chest pain, abdominal pain, nausea or vomiting, headache, or visual changes. - Related Data Home Medications Medication Instructions Recorded Confirmed Ibuprofen [Motrin Ib] 600 mg PO Q8H PRN 01/27/21 01/27/21 Allergies Allergy/AdvReac Type Severity Reaction Status Date / Time No Known Allergies Allergy Verified 01/27/21 10:40 Review of Systems ROS Statement: Those systems with pertinent positive or pertinent negative responses have been documented in the HPI. ROS Other: All systems not noted in ROS Statement are negative. Past Medical History Past Medical History: Asthma, Musculoskeletal Disorder Additional Past Medical History / Comment(s): migraines,hx. heart murmur, coar ctation of the aorta (surgery 1988), kidney stones, hx of being placed on life support 07/26 for 6 1/2 days pt states r/t asthma, pneumonia, current back pain with von leg pain, recent admission for abd pain-ovarian cysts History of Any Multi-Drug Resistant Organisms: None Reported Past Surgical History: Section, Hernia Repair, Tubal Ligation Additional Past Surgical History / Comment(s): cardiac surgery Coarctation of aorta (1988), lung biopsy(1988), Umbilical hernia (12/31/14 ),hernia repair 06/25,C-Sec WITH TWINS (10/23/14) Past Anesthesia/Blood Transfusion Reactions: No Reported Reaction Additional Past Anesthesia/Blood Transfusion Reaction / Comment(s): Never had blood transfusion Past Psychological History: Anxiety, Depression Smoking Status: Current every day smoker Past Alcohol Use History: None Reported Past Drug Use History: None Reported - Past Family History Mother Family Medical History: Cancer, Diabetes Mellitus, Hyperlipidemia, Hypertension Additional Family Medical History / Comment(s): Thyroid CA Father Family Medical History: Asthma General Exam Limitations: no limitations General appearance: alert, in no apparent distress Head exam: Present: atraumatic, normocephalic, normal inspection Eye exam: Present: normal appearance, PERRL, EOMI. Absent: scleral icterus, conjunctival injection, periorbital swelling ENT exam: Present: normal exam, mucous membranes moist Neck exam: Present: normal inspection, full ROM. Absent: tenderness, meningismus, lymphadenopathy Respiratory exam: Present: normal lung sounds bilaterally. Absent: respiratory distress, wheezes, rales, rhonchi, stridor Cardiovascular Exam: Present: regular rate, normal rhythm, normal heart sounds. Absent: systolic murmur, diastolic murmur, rubs, gallop, clicks Extremities exam: Present: full ROM (Full range of motion of the left ankle and all digits of the left foot), tenderness (Tenderness of the fifth metatarsal, lateral malleolus, and navicular of the left foot), normal capillary refill (Capillary refill less than 2 seconds in the DP pulse 2+ lower extremity), other (She does have some ecchymosis noted along the lateral aspect of the left foot.) Course Vital Signs 01/27/21 09:30 Temperature 97.5 F L Pulse Rate 79 Respiratory 18 Rate Blood Pressure 117/73 O2 Sat by Pulse 100 Oximetry Procedures - Orthopedic Splinting/Casting Injury #1 Side: left Lower Extremity Injury Location: short leg Lower Extremity Immobilizer: posterior splint Other Orthopedic Equipment: crutches Medical Decision Making - Medical Decision Making X-ray of the left foot shows no acute fracture or dislocation. X-ray of the left ankle shows no acute fracture-dislocation. I did review these images. However patient does have ecchymosis and is complaining of significant tenderness along the fifth metatarsal. Therefore she was placed in a splint and will follow up with orthopedics. She was written a prescription for crutches. Disposition Clinical Impression: Foot pain, left Disposition: HOME SELF-CARE Condition: Good Instructions (If sedation given, give patient instructions): Foot Sprain (ED) Additional Instructions: Take Motrin and Tylenol for pain. Please rest ice and elevate the left foot. Keep Splint dry. Use crutches. Follow-up with orthopedics. Return to the emergency room for any worsening symptoms. Is patient prescribed a controlled substance at d/c from ED?: No Referrals: Cornelia Modi MD [Primary Care Provider] - 1-2 days Time of Disposition: 11:07
[2021-01-27] MEDS ORDERED: IBUPROFEN 600 MG TAB PO STA (10:53)
== END 2021-01-27 11:50 | disposition home or self-care (01) ==
LOC: EC 09:23
DX: S90.32XA Contusion of left foot, initial encounter (principal); J45.909 Unspecified asthma, uncomplicated; F41.9 Anxiety disorder, unspecified; F32.9 Major depressive disorder, single episode, unspecified; F17.200 Nicotine dependence, unspecified, uncomplicated; Z87.442 Personal history of urinary calculi; Z79.1 Long term (current) use of non-steroidal anti-inflammatories (NSAID); W10.9XXA Fall (on) (from) unspecified stairs and steps, initial encounter; Y93.01 Activity, walking, marching and hiking
CPT/HCPCS: 29515; 99284

== ENCOUNTER 2021-04-10 15:40 | Emergency (ER) | payer OTHER ==
[2021-04-10 15:45] VITALS: TEMP 97.6
[2021-04-10] MEDS ORDERED: KETOROLAC 15 MG/ML 1 ML VIAL IVP STA (15:51)
[2021-04-10] MEDS ORDERED: SODIUM CHLORIDE 0.9% 1,000 ML IV STA (15:51)
[2021-04-10] MEDS ORDERED: ONDANSETRON 4 MG/2 ML VIAL IVP STA (15:51)
[2021-04-10] MEDS ORDERED: FAMOTIDINE 20 MG/2 ML VIAL IV STA (15:52)
--- NOTE | 2021-04-10 16:00 | ED ---
Female Urogenital HPI - General Source: patient Mode of arrival: ambulatory Limitations: no limitations <Reinaldo Silva - Last Filed: 04/10/21 17:37> <Peg Resendiz - Last Filed: 04/11/21 17:02> - General Chief complaint: Urogenital Stated complaint: Kidney Stone Time Seen by Provider: 04/10/21 15:46 - History of Present Illness Initial comments: 30-year-old female with history of kidney stones presents to emergency Department with a chief complaint of flank pain. Patient reports symptoms began about 2 AM this morning, sudden onset and woke her up out of her sleep. Patient reports he feels somewhat like her previous kidney stone but she reports obstructive urinary symptoms. States she has to push in order to urinate. However, she denies any hematuria, hematochezia or melena. Reports the pain is located in her left flank with mild radiation to the left groin. She does report some nausea but denies any vomiting at this time. Denies any possibility for . Denies any vaginal or infectious urinary symptoms. Denies any fevers or chills. (Reinaldo Silva) - Related Data Home Medications Medication Instructions Recorded Confirmed Ibuprofen [Motrin Ib] 600 mg PO Q8H PRN 01/27/21 01/27/21 Previous Rx's Medication Instructions Recorded Cephalexin [Keflex] 500 mg PO BID #10 cap 04/10/21 HYDROcodone/APAP 7.5-325MG [[place] 1 tab PO Q6HR PRN 3 Days #12 tab 04/10/21 7.5-325] Ondansetron Odt [Zofran Odt] 4 mg PO Q8HR PRN #14 tab 04/10/21 Tamsulosin [Flomax] 0.4 mg PO DAILY #7 cap 04/10/21 Allergies Allergy/AdvReac Type Severity Reaction Status Date / Time No Known Allergies Allergy Verified 04/10/21 15:44 Review of Systems ROS Other: All systems not noted in ROS Statement are negative. <Reinaldo Silva - Last Filed: 04/10/21 17:37> ROS Other: All systems not noted in ROS Statement are negative. <Peg Resendiz - Last Filed: 04/11/21 17:02> ROS Statement: Those systems with pertinent positive or pertinent negative responses have been documented in the HPI. Past Medical History Past Medical History: Asthma, Musculoskeletal Disorder Additional Past Medical History / Comment(s): migraines,hx. heart murmur, coarctation of the aorta (surgery 1988), kidney stones, hx of being placed on life support 07/26 for 6 1/2 days pt states r/t asthma, pneumonia, current back pain with von leg pain, recent admission for abd pain-ovarian cysts History of Any Multi-Drug Resistant Organisms: None Reported Past Surgical History: Section, Hernia Repair, Tubal Ligation Additional Past Surgical History / Comment(s): cardiac surgery Coarctation of aorta (1988), lung biopsy(1988), Umbilical hernia (12/31/14 ),hernia repair 06/25,C-Sec WITH TWINS (10/23/14) Past Anesthesia/Blood Transfusion Reactions: No Reported Reaction Additional Past Anesthesia/Blood Transfusion Reaction / Comment(s): Never had blood transfusion Past Psychological History: Anxiety, Depression Smoking Status: Current every day smoker Past Alcohol Use History: None Reported Past Drug Use History: None Reported - Past Family History Mother Family Medical History: Cancer, Diabetes Mellitus, Hyperlipidemia, Hypertension Additional Family Medical History / Comment(s): Thyroid CA Father Family Medical History: Asthma <Reinaldo Silva - Last Filed: 04/10/21 17:37> General Exam Limitations: no limitations General appearance: alert, in no apparent distress Head exam: Present: atraumatic, normocephalic, normal inspection Eye exam: Present: normal appearance, PERRL, EOMI Pupils: Present: normal accommodation ENT exam: Present: normal exam, normal oropharynx, mucous membranes moist Neck exam: Present: normal inspection, full ROM. Absent: tenderness Respiratory exam: Present: normal lung sounds bilaterally. Absent: respiratory distress, wheezes, rales, rhonchi, stridor Cardiovascular Exam: Present: regular rate, normal rhythm, normal heart sounds. Absent: systolic murmur GI/Abdominal exam: Present: soft, tenderness (Left flank), normal bowel sounds. Absent: distended, guarding, rebound, rigid Extremities exam: Present: normal inspection, full ROM, normal capillary refill. Absent: tenderness, pedal edema, joint swelling Back exam: Present: normal inspection, full ROM, CVA tenderness (L). Absent: tenderness, CVA tenderness (R) Neurological exam: Present: alert, oriented X3 Psychiatric exam: Present: normal affect, normal mood Skin exam: Present: warm, dry, intact, normal color <Reinaldo Silva - Last Filed: 04/10/21 17:37> Course Vital Signs 04/10/21 04/10/21 15:42 17:57 Temperature 97.6 F Pulse Rate 78 72 Respiratory 19 18 Rate Blood Pressure 141/92 130/78 O2 Sat by Pulse 100 98 Oximetry Medical Decision Making - Lab Data Result diagrams: 04/10/21 15:55 04/10/21 15:55 <Reinaldo Silva - Last Filed: 04/10/21 17:37> - Lab Data Result diagrams: 04/10/21 15:55 04/10/21 15:55 <Peg Resendiz - Last Filed: 04/11/21 17:02> - Medical Decision Making 30-year-old female with history of kidney stones presents to emergency Department with a chief complaint of flank pain. On physical examination, left CVA tenderness. Patient was given IV fluids, antiemetics and Toradol for pain. Laboratory work obtained shows hematuria with a possible urinary tract infection. Urine culture will be pending. I will prescribe some Keflex. Patient was given additional analgesics and will be given Zofran starter pack and Flomax here. She will be discharged with [place]. Opioid form signed. She'll also be given a prescription for Zofran and Flomax. CT of abdomen and pelvis without contrast reveals a left-sided kidney stone measuring approximately 6 mm in the left UVJ. Bladder scan obtained shows 50 mL of urine. Strict return parameters were thoroughly discussed patient was understanding and agreeable. Urology follow-up. Case discussed with (Reinaldo Silva) I was available for consultation in the emergency department. The history and physical exam were done by the midlevel provider. I was consulted for this patients care. I reviewed the case with the midlevel provider and based on their presentation of the patient, I agree with the assessment, medical decision making and plan of care as documented. Chart was dictated using [employer] dictation software. Attempts were made to correct any dictation errors however some typographical errors may persist. Patient was seen during a national state of emergency due to the Covid-19 pandemic. (Peg Resendiz) - Lab Data Lab Results 04/10/21 04/10/21 04/10/21 Range/Units 15:55 15:55 15:55 WBC 6.7 (3.8-10.6) k/uL RBC 4.04 (3.80-5.40) m/uL Hgb 13.2 (11.4-16.0) gm/dL Hct 38.6 (34.0-46.0) % MCV 95.6 (80.0-100.0) fL MCH 32.6 (25.0-35.0) pg MCHC 34.2 (31.0-37.0) g/dL RDW 13.0 (11.5-15.5) % Plt Count 122 L (150-450) k/uL MPV 8.5 Neutrophils % 64 % Lymphocytes % 26 % Monocytes % 4 % Eosinophils % 4 % Basophils % 1 % Neutrophils # 4.3 (1.3-7.7) k/uL Lymphocytes # 1.8 (1.0-4.8) k/uL Monocytes # 0.3 (0-1.0) k/uL Eosinophils # 0.2 (0-0.7) k/uL Basophils # 0.0 (0-0.2) k/uL Sodium (137-145) mmol/L Potassium (3.5-5.1) mmol/L Chloride (98-107) mmol/L Carbon Dioxide (22-30) mmol/L Anion Gap mmol/L BUN (7-17) mg/dL Creatinine (0.52-1.04) mg/dL Est GFR (CKD-EPI)AfAm (>60 ml/min/1.73 sqM) Est GFR (CKD-EPI)NonAf (>60 ml/min/1.73 sqM) Glucose (74-99) mg/dL Calcium (8.4-10.2) mg/dL Total Bilirubin (0.2-1.3) mg/dL AST (14-36) U/L ALT (4-34) U/L Alkaline Phosphatase (38-126) U/L Total Protein (6.3-8.2) g/dL Albumin (3.5-5.0) g/dL Lipase (23-300) U/L Urine Color Yellow Urine Appearance Clear (Clear) Urine pH 5.5 (5.0-8.0) Ur Specific [place] 1.010 (1.001-1.035) Urine Protein Trace H (Negative) Urine Glucose (UA) Negative (Negative) Urine Ketones Negative (Negative) Urine Blood Large H (Negative) Urine Nitrite Negative (Negative) Urine Bilirubin Negative (Negative) Urine Urobilinogen <2.0 (<2.0) mg/dL Ur Leukocyte Esterase Negative (Negative) Urine RBC >182 H (0-5) /hpf Urine WBC 13 H (0-5) /hpf Ur Squamous Epith Cells 4 (0-4) /hpf Urine Bacteria Rare H (None) /hpf Urine Mucus Rare H (None) /hpf Urine HCG, Qual Not Detected (Not Detectd) 04/10/21 Range/Units 15:55 WBC (3.8-10.6) k/uL RBC (3.80-5.40) m/uL Hgb (11.4-16.0) gm/dL Hct (34.0-46.0) % MCV (80.0-100.0) fL MCH (25.0-35.0) pg MCHC (31.0-37.0) g/dL RDW (11.5-15.5) % Plt Count (150-450) k/uL MPV Neutrophils % % Lymphocytes % % Monocytes % % Eosinophils % % Basophils % % Neutrophils # (1.3-7.7) k/uL Lymphocytes # (1.0-4.8) k/uL Monocytes # (0-1.0) k/uL Eosinophils # (0-0.7) k/uL Basophils # (0-0.2) k/uL Sodium 137 (137-145) mmol/L Potassium 4.8 (3.5-5.1) mmol/L Chloride 107 (98-107) mmol/L Carbon Dioxide 20 L (22-30) mmol/L Anion Gap 10 mmol/L BUN 17 (7-17) mg/dL Creatinine 0.87 (0.52-1.04) mg/dL Est GFR (CKD-EPI)AfAm >90 (>60 ml/min/1.73 sqM) Est GFR (CKD-EPI)NonAf 89 (>60 ml/min/1.73 sqM) Glucose 89 (74-99) mg/dL Calcium 9.6 (8.4-10.2) mg/dL Total Bilirubin 0.3 (0.2-1.3) mg/dL AST 52 H (14-36) U/L ALT 36 H (4-34) U/L Alkaline Phosphatase 59 (38-126) U/L Total Protein 7.3 (6.3-8.2) g/dL Albumin 4.3 (3.5-5.0) g/dL Lipase 165 (23-300) U/L Urine Color Urine Appearance (Clear) Urine pH (5.0-8.0) Ur Specific [place] (1.001-1.035) Urine Protein (Negative) Urine Glucose (UA) (Negative) Urine Ketones (Negative) Urine Blood (Negative) Urine Nitrite (Negative) Urine Bilirubin (Negative) Urine Urobilinogen (<2.0) mg/dL Ur Leukocyte Esterase (Negative) Urine RBC (0-5) /hpf Urine WBC (0-5) /hpf Ur Squamous Epith Cells (0-4) /hpf Urine Bacteria (None) /hpf Urine Mucus (None) /hpf Urine HCG, Qual (Not Detectd) Disposition Is patient prescribed a controlled substance at d/c from ED?: Yes If prescribed controlled substance>3 days was MAPS reviewed?: Prescribed <3 Days Time of Disposition: 17:39 <Reinaldo Silva - Last Filed: 04/10/21 17:37> <Peg Resendiz - Last Filed: 04/11/21 17:02> Clinical Impression: Kidney stone on left side Disposition: HOME SELF-CARE Condition: Stable Instructions (If sedation given, give patient instructions): Kidney Stones (ED) Additional Instructions: Please return to the Emergency Department if symptoms worsen or any other concerns. Follow-up with urology. Take prescribed medication as directed. Prescriptions: Tamsulosin [Flomax] 0.4 mg PO DAILY #7 cap Cephalexin [Keflex] 500 mg PO BID #10 cap HYDROcodone/APAP 7.5-325MG [[place] 7.5-325] 1 tab PO Q6HR PRN 3 Days #12 tab PRN Reason: Pain Ondansetron Odt [Zofran Odt] 4 mg PO Q8HR PRN #14 tab PRN Reason: Nausea Referrals: Cornelia Modi MD [Primary Care Provider] - 1-2 days Matteo Lim MD [STAFF PHYSICIAN] - 1-2 days
[2021-04-10 16:17] LABS: Basophils % (A) 1 %; Eosinophils # (A) 0.2 k/uL (0-0.7); Eosinophils % (A) 4 %; HCT 38.6 % (34.0-46.0); HGB 13.2 gm/dL (11.4-16.0); Lymphocytes # (A) 1.8 k/uL (1.0-4.8); Lymphocytes % (A) 26 %; MCH 32.6 pg (25.0-35.0); MCHC 34.2 g/dL (31.0-37.0); MCV 95.6 fL (80.0-100.0); Mean Platelet Volume 8.5; Monocytes # (A) 0.3 k/uL (0-1.0); Monocytes % (A) 4 %; Neutrophils # (A) 4.3 k/uL (1.3-7.7); Neutrophils % (A) 64 %; Platelet Count 122 k/uL (150-450); RBC 4.04 m/uL (3.80-5.40); WBC 6.7 k/uL (3.8-10.6)
[2021-04-10 16:26] LABS: Appearance,Urine Clear (Clear); Bacteria,Urine Rare /hpf; Bilirubin,Urine Negative (Negative); Blood,Urine Large (Negative); Color,Urine Yellow; Glucose,Urine (UA) Negative (Negative); Ketones,Urine Negative (Negative); Leukocyte Esterase,Urine Negative (Negative); Mucus,Urine Rare /hpf; Nitrite,Urine Negative (Negative); PH, Urine 5.5 (5.0-8.0); Protein,Urine Trace (Negative); RBC,Urine >182 /hpf (0-5); Squamous Epithelial Cell,Urine 4 /hpf (0-4); Urobilinogen,Urine <2.0 mg/dL (<2.0); WBC,Urine 13 /hpf (0-5)
[2021-04-10 16:37] LABS: ALT 36 U/L (4-34); AST 52 U/L (14-36); African American GFR (CKD) >90 (>60 ml/min/1.73 sqM); Albumin 4.3 g/dL (3.5-5.0); Alkaline Phosphatase 59 U/L (38-126); Anion Gap 10 mmol/L; Blood Urea Nitrogen 17 mg/dL (7-17); Calcium 9.6 mg/dL (8.4-10.2); Carbon Dioxide 20 mmol/L (22-30); Chloride 107 mmol/L (98-107); Glucose 89 mg/dL (74-99); Lipase 165 U/L (23-300); Non-African American GFR(CKD) 89 (>60 ml/min/1.73 sqM); Sodium 137 mmol/L (137-145); Total Bilirubin 0.3 mg/dL (0.2-1.3); Total Protein 7.3 g/dL (6.3-8.2)
[2021-04-10 16:45] LABS: Potassium 4.8 mmol/L (3.5-5.1)
[2021-04-10] MEDS ORDERED: HYDROmorphone 1 MG/ML 1 ML SYRINGE IVP STA (16:46)
--- NOTE | 2021-04-10 17:07 | CT ---
EXAMINATION TYPE: CT abdomen pelvis wo con DATE OF EXAM: 04/10/2021 COMPARISON: 08/02/2017 HISTORY: Lt flank pain. Hx renal stones. CT DLP: 587.2 mGycm Automated exposure control for dose reduction was used. Images obtained from the diaphragm to the floor the pelvis with no contrast. Lung bases are clear of infiltrate. There is no pleural effusion. Heart size is fairly normal. There is no pericardial effusion. Liver spleen stomach pancreas gallbladder appear intact. The bile ducts are not dilated. There is no adrenal mass. Kidneys have normal size. There is left-sided hydronephrosis. There are a f ew small calculi in the left kidney that measure up to 2 mm. There are also several calculi in the ri ght kidney measuring up to 2 mm. There is left-sided hydronephrosis and hydroureter. There is 6 mm ca lculus at the left ureteral vesicle junction. There are phleboliths in the pelvis. Bladder distends s moothly. There is no inguinal hernia. Uterus is anteverted. There is no free fluid in the pelvis. Lumbar vertebra have normal alignment. Th ere is no compression fracture. Bony pelvis is intact. The hip joints are intact. There is no mesenteric edema. There is no ascites or free air. There is no bowel obstruction. Appendi x is posterior and appears normal. IMPRESSION: Obstructing calculus at the left ureterovesical junction. Left side hydronephrosis and hydroureter. C alculus is almost in the urinary bladder. Multiple bilateral small renal calculi. Hydronephrosis new compared to old exam. Renal calculi are ne w compared to old exam.
[2021-04-10] MEDS ORDERED: HYDROcodone/APAP 5-325MG 1 EACH TAB PO STA (17:39)
[2021-04-10] MEDS ORDERED: ONDANSETRON 4 MG ODT STARTER PACK 2 TAB BTL PO STA (17:39)
[2021-04-10] MEDS ORDERED: TAMSULOSIN 0.4 MG CAP.ER.24H PO STA (17:39)
[2021-04-10 17:58] VITALS: BP 130/78; PULSE 72; RESP 18
== END 2021-04-10 17:58 | disposition home or self-care (01) ==
LOC: EC 15:40
DX: N13.2 Hydronephrosis with renal and ureteral calculous obstruction (principal); J45.909 Unspecified asthma, uncomplicated; F17.200 Nicotine dependence, unspecified, uncomplicated; Z79.1 Long term (current) use of non-steroidal anti-inflammatories (NSAID); Z79.899 Other long term (current) drug therapy; Z82.49 Family history of ischemic heart disease and other diseases of the circulatory system; Z83.3 Family history of diabetes mellitus; Z83.49 Family history of other endocrine, nutritional and metabolic diseases
CPT/HCPCS: 36415; 80053; 83690; 85025; 81001; 81025; 87086; 74176; 96374; 96375 ×3; 99284; J2405; J1170; J1885; S0119